=== PATIENT | female | born 1975 | race Caucasian/White ===

== ENCOUNTER 2021-06-05 21:54 | Emergency (ER) | payer MEDICAID, SELFPAY ==
--- NOTE | 2021-06-05 22:14 | XRR_ITS ---
PROCEDURE INFORMATION: Exam: XR Chest Exam date and time: 06/05/2021 10:14 PM Age: 45 years old Clinical indication: Sternal or substernal pain; Additional info: Cp TECHNIQUE: Imaging protocol: XR of the chest. Views: 1 view. COMPARISON: CT abdomen pelvis w con* [id number] 01/23/2018 5:04 PM FINDINGS: Lungs: Unremarkable. No consolidation. Pleural spaces: Unremarkable. No pleural effusion. No pneumothorax. Heart/Mediastinum: Mild cardiomegaly. Bones/joints: Unremarkable. XR/XR chest 1V portable [id number] IMPRESSION: Mild cardiomegaly, negative for infiltrate
--- NOTE | 2021-06-05 22:15 | ECG_ITS ---
[facility] Test Date: 2021-06-05 Pat Name: Nataly Capps Department: Room: Gender: Female Mds Coordinator: : 1975 Requested By: Rick Simpson Order Number: [id number] Reading MD: ANGELO COUGHLIN Measurements Intervals [place] Rate: 72 P: 28 KS: 136 QRS: 39 QRSD: 122 T: 40 QT: 369 QTc: 406 Interpretive Statements SINUS RHYTHM PROBABLE LATERAL MYOCARDIAL INFARCTION [35 ms Q WAVE IN I/aVL/V5/V6], OF INDETERMINATE AGE PROBABLE INFERIOR MYOCARDIAL INFARCTION [35 ms Q WAVE IN II/aVF], PROBABLY OLD No previous ECG available for comparison Electronically Signed On 06-07-2021 20:30:03 CDT by ANGELO COUGHLIN [id number]
[2021-06-05 22:20] VITALS: BP 111/78; PULSE 89; RESP 18; TEMP 36.9; O2SAT 100; BMI 35.4
[2021-06-05 23:38] VITALS: BP 122/61; PULSE 80; RESP 18; O2SAT 100
--- NOTE | 2021-06-05 23:50 | ED_ITS ---
HPI - Chest Pain General: Chief Complaint: Chest Pain Stated Complaint: CP Time Seen by Provider: 06/05/21 23:33 Source: patient Mode of arrival: ambulatory Limitations: no limitations History of Present Illness: HPI narrative: 45-year-old female states that she woke up this morning with a sharp pain in the center of her chest. States it has been going on all day. States it is tender to palpation and her pain is worse with movements of her arm and with deep breaths. She denies any vomiting or diarrhea. Denies any history of heart disease. Denies any fever or cough. Associated symptoms: Deny abdominal pain, dyspnea, fever(s), nausea or vomiting Review of Systems Const: Denies: fever(s), chills, body aches or change in appetite Eyes: Denies: blurry vision or eye discomfort ENMT: Denies: throat pain or dental pain Card: Reports: chest pain Resp: Denies: dyspnea GI: Denies: abdominal pain, nausea, vomiting or diarrhea : Denies: dysuria Musc: Denies: neck pain or back pain Skin/Breast: Denies: rash Neuro: Denies: headache(s) Psych: Denies: depression Isaiah/Lymph: Denies: easy bruising All/Imm: Denies: urticaria PFSH ED PFSH: Family History Other Diabetes Hypertension Social History Smoking and tobacco status: current some day smoker cigarettes [ Other cigarette details: only when stressed ] Alcohol intake: never Female Reproductive History: Date of last menstrual period: 05/27/21 Physical Exam Const: COMMON NORMALS: no acute distress, patient oriented x3 and healthy appearing HENMT: COMMON NORMALS: normocephalic and atraumatic HEAD & SCALP: normocephalic and atraumatic Eye: COMMON NORMALS: Equal, round and reactive pupils present and EOMs intact bilaterally PUPIL: Yes Equal, round and reactive pupils present Neck/C-Spine: COMMON NORMALS: full ROM and supple Chest: COMMONS NORMALS: normal inspection of the chest OTHER: point tender in center of chest Resp: COMMON NORMALS: normal respiratory effort, No retractions, No use of accessory muscles and clear to auscultation bilaterally AUSCULTATION: clear to auscultation bilaterally Cardio: COMMON NORMALS: regular rate, regular rhythm and No murmurs present (Cardio) RATE: regular rate RHYTHM: regular rhythm GI: COMMON NORMALS: Normal to inspection, nondistended, normoactive bowel sounds present, Soft to palpation, non-tender and no masses PALPATION: Yes Soft to palpation Extremity: COMMON NORMALS: normal to inspection and full ROM Neuro: COMMON NORMALS: patient oriented x3, moves all extremities and no focal motor deficits Psych: COMMON NORMALS: mental status grossly normal, Normal thought process present and cooperative THOUGHT PROCESS: Normal thought process present Skin: COMMON NORMALS: no rashes or lesions noted and no wounds GENERAL SKIN EXAM: no rashes or lesions noted Course Vital Signs: Vital signs: Vital Signs Temperature 98.5 F 06/05/21 22:20 Pulse Rate 75 06/06/21 00:30 Respiratory Rate 18 06/06/21 00:30 Blood Pressure 92/68 06/06/21 00:30 Pulse Oximetry 99 06/06/21 00:30 MDM - Chest Pain MDM Narrative: Medical decision making narrative: Patient presents here with chest pain likely chest wall pain. She is point tender. Initial troponin EKG and x-ray are all normal. I believe that she is a 2-hour troponin as her pain is been going on for over 12 hours. She is pain-free here after Toradol. Will prescribe her Naprosyn for home. She is to follow-up PCP and return if worsening. Lab Data: Labs: Lab Results 06/05/21 06/05/21 06/05/21 Range/Units 00:04 00:04 00:04 WBC 11.0 H (4.0-10.0) 10^3/ uL RBC 4.76 (4.1-5.3) 10^6/u L Hgb 13.8 (11.5-15.3) g/dL Hct 43.7 (37.0-47.0) % MCV 91.8 (81-99) fL MCH 29.0 (28.0-34.0) pg MCHC 31.6 (30.0-36.0) g/dL RDW 13.1 (12.1-15.1) % Plt Count 313 (130-400) 10^3/c mm MPV 10.3 (7.4-10.4) fL Neut % (Auto) 59.5 % Lymph % (Auto) 30.5 % [place] % (Auto) 6.0 % Eos % (Auto) 3.2 % Baso % (Auto) 0.4 % Neut # (Auto) 6.56 (1.8-7.7) 10^3/u L Lymph # (Auto) 3.4 (0.8-4.8) 10^3/u L [place] # (Auto) 0.7 (0.2-0.9) 10^3/u L Eos # (Auto) 0.4 (0.0-0.8) 10^3/u L Baso # (Auto) 0.0 (0.0-0.1) 10^3/u L Nucleated RBC % (a uto) 0 % Nucleated RBCs # 0.0 /100WBC Sodium 138 (136-145) mmol/L Potassium 3.8 (3.5-5.1) mmol/L Chloride 102 (98-107) mmol/L Carbon Dioxide 27 (22-29) mmol/L Anion Gap 12.8 (5-19) BUN 10 (6-20) mg/dL Creatinine 0.5 (0.5-0.9) mg/dL GFR Calculation 134.7 H (90-130) mL/min Glucose 86 (65-115) mg/dL Calculated Osmolal ity 284 L (285-295) mOsm/k g Calcium 9.0 (8.5-10.5) mg/dL Total Bilirubin 0.3 (0.15-1.2) mg/dL AST 20 (0-32) U/L ALT 25 (0-33) U/L Alkaline Phosphata se 87 (35-105) IU/L Troponin T Baselin e 6 (0-10) ng/L Total Protein 6.9 (6.6-8.7) g/dL Albumin 4.1 (3.5-5.2) g/dL Globulin 2.8 (1.3-4.6) g/dL Imaging Data^: CXR: Attestation: I personally reviewed and interpreted this imaging study as follows: My impression: no acute abnormality EKG Data^: EKG 1: Attestation: I personally reviewed and interpreted this EKG as follows: EKG interpretation date: 06/05/21 EKG interpretation time: 23:34 Interpretation: nsr hr [address] or t wave abnormalities qrs 122 qtc 393 EKG 2: Attestation: I personally reviewed and interpreted this EKG as follows: EKG interpretation date: 06/06/21 EKG interpretation time: 00:24 Interpretation: nsr hr 71 with no s tor twave abnormalities qrs 117 qtc 390 Discharge Plan Discharge Patient Disposition: Home Clinical Impression: Chest pain Qualifiers: Chest pain type: unspecified Qualified Code(s): R07.9 - Chest pain, unspecified Condition: Stable Prescriptions: New Naprosyn 500 mg tablet 500 mg PO BID PRN (Reason: pain) Qty: 20 RF: 0 No Action medroxyprogesterone [Depo-Provera] 150 mg/mL suspension IM .every 3 months RF: 0 Discharge Orders: Discharge ED (Routine); Ordered 06/06/21 Ordered By: Rick Simpson Discharge Diet: Advance as tolerated Discharge Activity: Resume usual activity Patient Instructions: Chest Pain (ED) Coding Level of Care Code ED Carpentry Specialist for Chg Fwd Exam Comprehensive
[2021-06-06] VITALS: BP 133/88; PULSE 72; RESP 15; O2SAT 91
--- NOTE | 2021-06-06 00:15 | ECG_ITS ---
[facility] Test Date: 2021-06-05 Pat Name: Nataly Capps Department: Room: Gender: Female Scanning Clerk: inocencio : 1975 Requested By: Rick Simpson Order Number: [id number] Reading MD: ANGELO COUGHLIN Measurements Intervals [place] Rate: 88 P: 43 NM: 149 QRS: 21 QRSD: 113 T: 30 QT: 336 QTc: 408 Interpretive Statements SINUS RHYTHM MODERATE INTRAVENTRICULAR CONDUCTION DELAY [110+ ms QRS DURATION] No previous ECG available for comparison Electronically Signed On 06-07-2021 20:33:10 CDT by ANGELO COUGHLIN [id number]
[2021-06-06 00:30] VITALS: BP 92/68; PULSE 75; RESP 18; O2SAT 99
[2021-06-06 00:40] LABS: Basophils % 0.4 %; Eosinophils # 0.4 10^3/uL (0.0-0.8); Eosinophils % 3.2 %; Hematocrit 43.7 % (37.0-47.0); Hemoglobin 13.8 g/dL (11.5-15.3); Lymphocytes # 3.4 10^3/uL (0.8-4.8); Lymphocytes % 30.5 %; Mean Corpuscular HGB Conc 31.6 g/dL (30.0-36.0); Mean Corpuscular Volume 91.8 fL (81-99); Mean Platelet Volume 10.3 fL (7.4-10.4); Monocytes # 0.7 10^3/uL (0.2-0.9); Neutrophils # 6.56 10^3/uL (1.8-7.7); Neutrophils % 59.5 %; Nucleated Red Blood Cells % 0 %; Platelet Count 313 10^3/cmm (130-400); Red Blood Count 4.76 10^6/uL (4.1-5.3); Red Cell Distribution Width 13.1 % (12.1-15.1)
[2021-06-06] MEDS: ketorolac 30 mg/mL INJ 15 MG IVP (00:40)
[2021-06-06 00:49] LABS: Troponin(5th) Baseline 6 ng/L (0-10)
[2021-06-06 00:53] LABS: Alanine Aminotransferase 25 U/L (0-33); Albumin Level 4.1 g/dL (3.5-5.2); Alkaline Phosphatase 87 IU/L (35-105); Anion Gap 12.8 (5-19); Aspartate Amino Transferase 20 U/L (0-32); Blood Urea Nitrogen 10 mg/dL (6-20); Carbon Dioxide 27 mmol/L (22-29); Chloride 102 mmol/L (98-107); Globulin 2.8 g/dL (1.3-4.6); Glomerular Filtration Rate 134.7 mL/min (90-130); Glucose 86 mg/dL (65-115); Osmolality Calculated 284 mOsm/kg (285-295); Potassium 3.8 mmol/L (3.5-5.1); Sodium 138 mmol/L (136-145); Total Bilirubin 0.3 mg/dL (0.15-1.2); Total Protein 6.9 g/dL (6.6-8.7)
[2021-06-06 01:22] VITALS: BP 98/61; PULSE 63; RESP 18; TEMP 36.8; O2SAT 100
--- NOTE | 2021-06-06 04:15 | ECG_ITS ---
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 Measurements Intervals [place] Rate: 71 P: 19 RI: 138 QRS: 21 QRSD: 117 T: 28 QT: 367 QTc: 401 Interpretive Statements SINUS RHYTHM POSSIBLE INFERIOR MYOCARDIAL INFARCTION [40+ ms Q WAVE AND/OR ST/T ABNORMALITY IN II/aVF], PROBABLY OLD Compared to ECG 06/05/2021 23:34:47 No significant changes Electronically Signed On 06-09-2021 0:39:17 CDT by Tiffanie Arceo M.D. [id number]
== END 2021-06-06 01:24 | disposition home or self-care (01) ==
PROVIDERS: Emergency Provider Emergency Medicine
DX: R07.9 Chest pain, unspecified (principal); F17.210 Nicotine dependence, cigarettes, uncomplicated
CPT/HCPCS: 71045; 80053; 84484; 85025; 93005; 96374; 99284; J1885

== ENCOUNTER → 2021-10-13 10:50 | Outpatient (BNVA) | payer MEDICAID, SELFPAY | PROVIDERS: Visit Provider Nurse Practitioner Family | DX: Z20.822 Contact with and (suspected) exposure to COVID-19 (principal) | CPT/HCPCS: 87426; 87635 ==

== ENCOUNTER 2022-09-06 17:09 | Emergency (ER) | payer MEDICAID, SELFPAY ==
--- NOTE | 2022-09-06 17:15 | USR_ITS ---
PROCEDURE INFORMATION: Exam: US Duplex Left Lower Extremity Veins, Limited Exam date and time: 09/06/2022 7:05 PM Age: 46 years old Clinical indication: Pain; Leg, lower; Left; Additional info: Heat, swollen, pain TECHNIQUE: Imaging protocol: Real-time Duplex ultrasound of the Left Lower Extremity with 2-D nogueira scale, color Doppler flow and spectral waveform analysis with image documentation. Limited exam focused on the left lower extremity veins. COMPARISON: CT abdomen pelvis w con* [id number] 01/23/2018 5:04 PM FINDINGS: Left deep veins: Unremarkable. The common femoral, femoral, proximal profunda femoral, popliteal, posterior tibial and peroneal veins are patent without thrombus. Normal compressibility, augmentation response and Doppler waveforms. Left superficial veins: Unremarkable. Saphenofemoral junction is patent without thrombus. Soft tissues: Unremarkable. US/CV venous duplex [facility] [id number] IMPRESSION: No sonographic evidence of deep vein thrombosis.
[2022-09-06 17:16] VITALS: BP 112/71; PULSE 102; RESP 14; TEMP 36.6; O2SAT 95; BMI 40.7
[2022-09-06] MEDS: oxyCODONE-APAP 5-325 mg Tablet 2 TAB PO (20:06)
--- NOTE | 2022-09-07 02:54 | W.ED.EXTPRO ---
HPI - Extremity Problem General: Chief complaint: Extremity Problem,Nontraumatic Stated complaint: Left leg burning Time Seen by Provider: 09/06/22 18:59 Source: patient History of Present Illness: 46-year-old female who complains of left leg burning searing type pain to the medial side of the left leg below her knee down to her foot. She has no back pain. She noticed some mild swelling. She was concerned about a blood clot. She also has a right index finger paronychia that has been more swollen and tender the past couple of days. No fever. No streaking. MD Complaint: extremity pain and extremity swelling Onset (ago): hour(s) Pain Consistency: constant Location: left and lower extremity Quality: burning Radiation: distal Relieving factors: nothing Exacerbating factors: palpation Associated symptoms: Reports rash (Right index finger); Deny chest pain, fever(s), myalgias or short of breath Review of Systems Const: Denies: fever(s) ENMT: Denies: throat pain Card: Denies: chest pain Resp: Denies: dyspnea, productive cough or non-productive cough GI: Denies: nausea or vomiting Musc: Denies: back pain Skin/Breast: Reports: rash (Right index finger) PFSH ED PFSH: Family History Other Diabetes Hypertension Social History Smoking and tobacco status: current some day smoker cigarettes [ Other cigarette details: only when stressed] Alcohol intake: never Female Reproductive History: Date of last menstrual period: 05/27/21 Physical Exam Const: COMMON NORMALS: no acute distress GENERAL APPEARANCE: cooperative; not ill appearing and not frail appearing HENMT: COMMON NORMALS: normocephalic, atraumatic and Normal external nose present HEAD & SCALP: normocephalic and atraumatic FACE & SINUS: normal facial exam and face symmetric NOSE: Normal external nose present Eye: COMMON NORMALS: Equal, round and reactive pupils present and EOMs intact bilaterally PUPIL: Yes Equal, round and reactive pupils present Neck/C-Spine: GENERAL: Yes trachea midline Chest: CHEST: Yes Symmetrical chest wall rise Resp: COMMON NORMALS: normal respiratory effort, No retractions, No use of accessory muscles and clear to auscultation bilaterally AUSCULTATION: clear to auscultation bilaterally Cardio: COMMON NORMALS: regular rate and regular rhythm RATE: regular rate RHYTHM: regular rhythm GI: COMMON NORMALS: Normal to inspection, nondistended, normoactive bowel sounds present Extremity: COMMON NORMALS: no pedal edema NARRATIVE EXTREMITY EXAM: Right index finger paronychia with swelling, and localized abscess. No streaking. No tenosynovitis. Left leg tender to palpation along the medial aspect of the leg. No knee effusion or tenderness. Normal range of motion of the knee. There is no warmth or redness. No edema. Tenderness is along the distribution of the saphenous nerve. There is no pain to the back. There is a negative straight leg raise test. Neuro: SWAPNIL COMA SCALE: document GCS findings Novi coma scale eye opening: Spontaneous Swapnil coma scale verbal response: Orientated Swapnil coma scale motor response: Obey commands Swapnil coma scale total score: 15 SENSORY EXAM: Yes extremities (intact) Psych: COMMON NORMALS: speech normal SPEECH: Yes normal speech Skin: COMMON NORMALS: no rashes or lesions noted GENERAL SKIN EXAM: no rashes or lesions noted Course Vital Signs: Vital signs: Vital Signs Temperature 98 F 09/06/22 17:16 Pulse Rate 102 H 09/06/22 17:16 Respiratory Rate 14 09/06/22 17:16 Blood Pressure 112/71 09/06/22 17:16 Pulse Oximetry 95 09/06/22 17:16 Oxygen Delivery Me thod 09/06/22 17:16 MDM - Extremity (Nontraumatic) Medical Decision Making DVT ultrasound is negative. Paronychia is drained under local anesthetic. She will be placed on antibiotics. Exam findings indicate saphenous neuritis. Unknown cause. No evidence of cellulitis or infection. No evidence of lumbar radiculopathy. The patient notes that she has had shingles in the past, and pain was similar. She has no rash over the back thigh or leg consistent with shingles. She will be prescribed valacyclovir to fill if she does get a shingles rash. Medication for neuropathic pain. Close outpatient follow-up. Lab Data Radiology Impressions Venous Duplex 09/06/22 17:15 IMPRESSION: No sonographic evidence of deep vein thrombosis. Discharge Plan Discharge Patient Disposition: Home Clinical Impression: Neuritis of left saphenous nerve, Paronychia of finger Condition: Stable Prescriptions: New Bactrim DS 800-160 mg tablet 1 tab PO DAILY 7 Days Qty: 14 0RF carbamazepine 100 mg tablet extended release 12 hr 100 mg PO BID Qty: 14 0RF ketorolac 10 mg tablet 10 mg PO TID PRN (Reason: pain) Qty: 10 0RF valacyclovir 1 gram tablet 1,000 mg PO BID 7 Days Qty: 14 0RF Discharge Orders: Discharge ED (Routine); Ordered 09/06/22 Ordered By: Malik Crowder Referrals: Emily May MD [Primary Care Provider] - Patient Instructions: Paronychia (ED), Paresthesia (ED), Opioid Safety, Pain Management Activity Restrictions/Additional Instructions: You may take pain medication when you get home to help you rest. Take the carbamazepine twice daily for the next 7 days for nerve pain. You may use ketorolac as needed for pain on top of this. Use the antibiotic (Bactrim) for your finger. Do not fill the valacyclovir unless you develop a shingles rash on your back or leg. Return for fever despite 2-3 doses of antivirals or antibiotics, worsening pain, worsening redness or swelling to either the finger or the leg. Coding Level of Care Code ED Social Worker Health Services for Inez Aldrich
== END 2022-09-06 20:10 | disposition home or self-care (01) ==
PROVIDERS: Emergency Provider Emergency Medicine; PCP Family Medicine
DX: L03.011 Cellulitis of right finger (principal); G58.8 Other specified mononeuropathies; F17.210 Nicotine dependence, cigarettes, uncomplicated
CPT/HCPCS: 10060; 32551; 93971; 99284

== ENCOUNTER 2022-09-10 09:37 | Emergency (ER) | payer MEDICAID, SELFPAY ==
[2022-09-10 09:45] VITALS: BP 125/82; PULSE 82; RESP 16; TEMP 37; O2SAT 96; BMI 40.7
--- NOTE | 2022-09-10 09:53 | XRR_ITS ---
PROCEDURE INFORMATION: Exam: XR Right Finger(s) Exam date and time: 09/10/2022 10:06 AM Age: 46 years old Clinical indication: Injury or trauma; Blunt trauma (contusions or hematomas); Right; Ring finger; Injury details: History--smashed RT 4 th finger. C/O pain -redness-swelling; Additional info: Fourth TECHNIQUE: Imaging protocol: Radiologic exam of the Right fingers. Views: Minimum 2 views. COMPARISON: No relevant prior studies available. FINDINGS: Bones/joints: No acute fracture or malalignment. Joint spaces are maintained. Soft tissues: No radiopaque foreign bodies are identified. XR/XR finger RT min 2V [id number] IMPRESSION: No acute fracture or malalignment.
[2022-09-10] MEDS: TRAMadol 50 mg Tablet PO (10:30)
[2022-09-10] MEDS: mupirocin oint 22 gm 1 APPLIC TOPICAL (10:32)
[2022-09-10 10:36] VITALS: PULSE 75; O2SAT 99
--- NOTE | 2022-09-10 11:03 | W.ED.EXTPRO ---
HPI - Extremity Problem General: Chief complaint: Extremity Injury, Upper Stated complaint: finger is in pain Time Seen by Provider: 09/10/22 09:45 History of Present Illness: 46-year-old female presents emergency room complaining of right fourth finger swelling and pain. She was seen 4 days ago had a paronychia was incised and drained is recurs increased swelling she denies fever sweats or chills. MD Complaint: extremity pain (Right fourth finger) Onset (ago): day(s) Pain Consistency: constant Location: right and upper extremity Quality: sharp Relieving factors: nothing Exacerbating factors: nothing Associated symptoms: Reports no associated symptoms; Deny chest pain, fever(s) or rash Review of Systems Const: Denies: fever(s), chills, body aches, change in appetite, fatigue or malaise ENMT: Denies: throat pain, ear or mastoid pain, nasal discharge or nasal congestion Card: Denies: chest pain, edema, dyspnea on exertion or orthopnea Resp: Denies: dyspnea, productive cough or non-productive cough GI: Denies: abdominal pain, nausea, vomiting, hematemesis, coffee ground emesis, diarrhea, constipation, bloating, hematochezia or melena : Denies: flank pain, difficulty voiding, dysuria, urinary frequency or urinary urgency Skin/Breast: Denies: rash or pruritus PFSH ED PFSH: Family History Other Diabetes Hypertension Social History Smoking and tobacco status: current some day smoker cigarettes [ Other cigarette details: only when stressed] Alcohol intake: never Female Reproductive History: Date of last menstrual period: 05/27/21 Physical Exam Const: COMMON NORMALS: no acute distress GENERAL APPEARANCE: cooperative and comfortable ORIENTATION/CONSCIOUSNESS: Yes awake, Yes oriented to person, Yes oriented to place and Yes oriented to time HENMT: COMMON NORMALS: normocephalic, atraumatic and hearing grossly normal bilaterally HEAD & SCALP: normocephalic and atraumatic Resp: COMMON NORMALS: normal respiratory effort, No retractions, No use of accessory muscles and clear to auscultation bilaterally AUSCULTATION: clear to auscultation bilaterally Cardio: COMMON NORMALS: regular rate, regular rhythm and No murmurs present (Cardio) RATE: regular rate RHYTHM: regular rhythm Neuro: SENSORIUM/ORIENTATION: Yes oriented to person, Yes oriented to place and Yes oriented to time Procedures Abscess I/D Site: hand (Fourth finger) Side (if applicable): right Technique: other (Bevel of an 18-gauge needle) Irrigation: No Packing used?: none Complications: pain Course Vital Signs: Vital signs: Vital Signs Temperature 98.6 F 09/10/22 09:45 Pulse Rate 75 09/10/22 10:36 Respiratory Rate 16 09/10/22 09:45 Blood Pressure 125/82 09/10/22 09:45 Pulse Oximetry 99 09/10/22 10:36 MDM - Extremity (Nontraumatic) Medical Decision Making Incised and drained paronychia on the right fourth finger at the cuticle large amount of purulent fluid expressed. Culture obtained. Continue previously prescribed Bactrim use topical antibiotic in addition to that. Medical Records I reviewed the patient's medical records. Lab Data I reviewed the patient's lab results. Radiology Impressions Finger X-Ray 09/10/22 09:53 IMPRESSION: No acute fracture or malalignment. Discharge Plan Discharge Patient Disposition: Home Clinical Impression: Paronychia of finger, Status post incision and drainage Condition: Stable Prescriptions: New mupirocin 2 % ointment 1 applic topical BID Qty: 15 0RF No Action carbamazepine 100 mg tablet extended release 12 hr 100 mg PO BID Qty: 14 0RF Rx Instructions: RX WRITTEN 09/06/22 PT DIDNT GET FILLED ketorolac 10 mg tablet 10 mg PO TID PRN (Reason: pain) Qty: 10 0RF Rx Instructions: RX WRITTEN 09/06/22 PT DIDNT GET FILLED Discharge Orders: Discharge ED (Routine); Ordered 09/10/22 Ordered By: Candido Martinez Referrals: Emily May MD [Primary Care Provider] - Discharge Diet: Usual diet Discharge Activity: Resume usual activity Patient Instructions: Opioid Safety, Pain Management Activity Restrictions/Additional Instructions: Soak finger once or twice daily apply topical antibiotic to the incisional area twice daily massage area to prevent recurrence of abscess. Complete antibiotics prescribed at previous visit. Coding Level of Care Code ED Art Framing Manager for Inez Aldrich
== END 2022-09-10 10:37 | disposition home or self-care (01) ==
PROVIDERS: Emergency Provider Family Medicine; PCP Family Medicine
DX: L03.011 Cellulitis of right finger (principal); Z98.890 Other specified postprocedural states; F17.210 Nicotine dependence, cigarettes, uncomplicated
CPT/HCPCS: 10060; 73140; 99283

== ENCOUNTER 2022-10-11 18:09 | Emergency (ER) | payer MEDICAID, SELFPAY ==
[2022-10-11 18:33] VITALS: BP 125/64; PULSE 72; RESP 16; TEMP 36.9; O2SAT 97
--- NOTE | 2022-10-11 19:48 | ED_ITS ---
HPI - Wound/Laceration General: Chief Complaint: Wound/Laceration Stated Complaint: left finger lac Time Seen by Provider: 10/11/22 19:43 History of Present Illness: 47-year-old female comes in today with injury to the left hand dorsal finger. Patient sustained a laceration to the middle finger of the left hand that is approximately 2 cm in length, patient also has some superficial lacerations to the second and fourth finger that are well approximated and not bleeding. Patient cannot recall her last tetanus shot. Review of Systems ENMT: Denies: throat pain Resp: Denies: dyspnea Musc: Reports: extremity pain Skin/Breast: Reports: new lesions PFS ED PFSH: Family History Other Diabetes Hypertension Social History Smoking and tobacco status: current some day smoker cigarettes [ Other cigar ette details: only when stressed] Alcohol intake: never Female Reproductive History: Date of last menstrual period: 05/27/21 Physical Exam Const: COMMON NORMALS: alert HENMT: COMMON NORMALS: atraumatic HEAD & SCALP: atraumatic Neck/C-Spine: COMMON NORMALS: full ROM Resp: COMMON NORMALS: normal respiratory effort Cardio: COMMON NORMALS: regular rate RATE: regular rate Extremity: LEFT UPPER EXTREMITY: Yes hand & digits (2 cm laceration to the middle dorsal finger, superficial lacerations to the) Left hand and digits: Yes inspection, Yes palpation and Yes ROM Neuro: SENSORIUM/ORIENTATION: Yes alert Skin: TRAUMA: laceration (3 linear lacerations to the second, third, and fourth distal finger left [place]) linear Procedures Laceration Laceration 1: Site: hand Side (If applicable): left Size (cm): 2 Depth: simple, single layer Local Anesthetic: lidocaine 1% and with epi Amount of anesthesia used (mL): 1 Pre-repair: wound explored and irrigated extensively Skin layer closed with: nylon Size (cm): 5-0 Number of sutures: 3 Technique: simple, interrupted and horizontal mattress Course Vital Signs: Vital signs: Vital Signs Temperature 98.4 F 10/11/22 18:33 Pulse Rate 72 10/11/22 18:33 Respiratory Rate 16 10/11/22 18:33 Blood Pressure 125/64 10/11/22 18:33 Pulse Oximetry 97 10/11/22 18:33 MDM - Wound/Laceration Medical Decision Making Patient comes in for injury to the left hand distal fingers. Patient has some superficial lacerations to the second and fourth digit of the fingers that are well approximated without any bleeding. Patient also has a more significant laceration to the third digit that is approximately 2 cm and into the subcutaneous fat. Patient cannot recall her last tetanus. Differential diagnosis includes finger laceration, foreign body, need for prophylaxis tetanus. No foreign body was noted. Wound to the middle finger where this repaired with 3 sutures. The other finger wounds were insignificant requiring no treatment. Patient's tetanus was updated. Patient was instructed on postprocedure care and need for follow-up or return to the ER. Patient stated understanding agreed to plan. Discharge Plan Discharge Patient Disposition: Home Clinical Impression: Finger laceration Qualifiers: Encounter type: initial encounter Finger: middle finger Damage to nail status: without damage Foreign body presence: without foreign body Laterality: left Qualified Code(s): S61.213A - Laceration without foreign body of left middle finger without damage to nail, initial encounter Condition: Stable Prescriptions: No Action carbamazepine 100 mg tablet extended release 12 hr 100 mg PO BID Qty: 14 0RF Rx Instructions: RX WRITTEN 09/06/22 PT DIDNT GET FILLED ketorolac 10 mg tablet 10 mg PO TID PRN (Reason: pain) Qty: 10 0RF Rx Instructions: RX WRITTEN 09/06/22 PT DIDNT GET FILLED mupirocin 2 % ointment 1 applic topical BID Qty: 15 0RF Discharge Orders: Discharge ED (Routine); Ordered 10/11/22 Ordered By: Sukhwinder Torres Referrals: Emily May MD [Primary Care Provider] - Discharge Diet: Usual diet Discharge Activity: Increase activity as tolerated Patient Instructions: Finger Laceration (ED) Activity Restrictions/Additional Instructions: Keep wound clean and dry. Is important keep the wound as dry as possible for the next 48 hours. After that she can wash wound gently with mild soap and water. Avoid submersion in water for long periods of time. Sutures need to be removed in 7 days. Follow-up with primary care in 1 week. Return to ED for worsening symptoms such as high fever greater than 100.4, increasing redness or swelling, or new concerns. 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
--- NOTE | 2022-10-11 20:15 | PC.NURSE ---
finger tips cleaned with saline and 4x4 gauze in prep for sutures of 3rd digit.
[2022-10-11] MEDS: tetanus-dipt-pertussis 0.5 mL SDV IM (20:23)
[2022-10-11 21:10] VITALS: PULSE 82; RESP 16; O2SAT 97
== END 2022-10-11 20:40 | disposition home or self-care (01) ==
PROVIDERS: Emergency Provider Nurse Practitioner Family; PCP Family Medicine
DX: S61.213A Laceration without foreign body of left middle finger without damage to nail, initial encounter (principal); Z23 Encounter for immunization; F17.210 Nicotine dependence, cigarettes, uncomplicated; X58.XXXA Exposure to other specified factors, initial encounter
CPT/HCPCS: 12001; 90471; 90715; 99282

== ENCOUNTER 2023-02-01 17:40 | Emergency (ER) | payer MEDICAID, SELFPAY ==
[2023-02-01 18:04] VITALS: BP 134/85; PULSE 78; RESP 15; TEMP 36.7; O2SAT 99
--- NOTE | 2023-02-01 18:09 | XRR_ITS ---
PROCEDURE INFORMATION: Exam: XR Left Hip Exam date and time: 02/01/2023 6:42 PM Age: 47 years old Clinical indication: Injury or trauma; Fall; Blunt trauma (contusions or hematomas); Left; Hip TECHNIQUE: Imaging protocol: Radiologic exam of the left hip. Views: 2 or 3 views hip with pelvis when performed. COMPARISON: CT abdomen pelvis w con* [id number] 01/23/2018 5:04 PM FINDINGS: Bones/joints: Unremarkable. No acute fracture. Soft tissues: Unremarkable. XR/XR hip LT 2-3V wo/w pel* [id number] IMPRESSION: No acute findings.
--- NOTE | 2023-02-01 18:09 | XRR_ITS ---
PROCEDURE INFORMATION: Exam: XR Lumbosacral Spine Exam date and time: 02/01/2023 6:42 PM Age: 47 years old Clinical indication: Injury or trauma; Fall; Blunt trauma (contusions or hematomas) TECHNIQUE: Imaging protocol: Radiologic exam of the lumbosacral spine. Views: 2 or 3 views. COMPARISON: CT abdomen pelvis w con* [id number] 01/23/2018 5:04 PM FINDINGS: Bones/joints: No acute fracture. Normal alignment. Soft tissues: Unremarkable. XR/XR lumbar spine 2-3V* [id number] IMPRESSION: No acute findings.
--- NOTE | 2023-02-01 18:55 | W.ED.FALL ---
HPI - Fall General: Chief Complaint: Fall Stated Complaint: back pain/hip pain Time Seen by Provider: 02/01/23 18:53 History of Present Illness: Patient yesterday accidentally slipped on a wet puddle causing her to land on her buttocks and back. Since then patient had pain to bilateral hips and low back. Patient appears nontoxic. Patient moves all extremities well. Patient reports no chronic medical problems. Review of Systems General: Reports: 10 or more systems reviewed and unremarkable except in HPI and below Const: Denies: fever(s) Musc: Reports: back pain and extremity pain PFSH ED PFSH: Family History Other Diabetes Hypertension Social History Smoking and tobacco status: current some day smoker cigarettes [ Other cigarette details: only when stressed] Alcohol intake: never Physical Exam Const: COMMON NORMALS: alert HENMT: COMMON NORMALS: normocephalic HEAD & SCALP: normocephalic Neck/C-Spine: COMMON NORMALS: full ROM Resp: COMMON NORMALS: normal respiratory effort Cardio: COMMON NORMALS: regular rate RATE: regular rate Back/Pelvis: THORACIC SPINE/UPPER BACK: No thoracic spinal tenderness LUMBAR SPINE/LOWER BACK: No lumbar spinal tenderness and Yes paraspinal muscle tenderness Extremity: COMMON NORMALS: full ROM Neuro: SENSORIUM/ORIENTATION: Yes alert Skin: COMMON NORMALS: turgor normal GENERAL SKIN EXAM: turgor normal Course Vital Signs: Vital signs: Vital Signs Temperature 98.0 F 02/01/23 18:04 Pulse Rate 78 02/01/23 18:04 Respiratory Rate 15 02/01/23 18:04 Blood Pressure 134/85 02/01/23 18:04 Pulse Oximetry 99 02/01/23 18:04 Oxygen Delivery Me thod 02/01/23 18:04 MDM - Fall Medical Decision Making 47-year-old female comes in today for complaints of low back pain and hip pain after slipping and falling yesterday. On exam patient has some muscle tenderness on palpation but no spinal tenderness. Patient moves all extremities well. Patient is weightbearing. Differential diagnosis includes fracture, intervertebral disc disease, sprain, contusion. X-rays of the low back and hip indicated no fractures or abnormalities. Reviewed exam with patient with recommendations for treatment and follow-up. Patient reported understanding. Lab Data Radiology Impressions Hip/Pelvis X-Ray 02/01/23 18:09 IMPRESSION: No acute findings. Lumbar Spine X-Ray 02/01/23 18:09 IMPRESSION: No acute findings. Discharge Plan Discharge Patient Disposition: Home Clinical Impression: Back pain, Bilateral hip pain Fall from slipping Qualifiers: Encounter type: initial encounter Qualified Code(s): W01.0XXA - Fall on same level from slipping, tripping and stumbling without subsequent striking against object, initial encounter Condition: Stable Prescriptions: New diclofenac potassium 50 mg tablet 50 mg PO Q8H PRN (Reason: pain) Qty: 10 0RF cyclobenzaprine 5 mg tablet 5 mg PO BID PRN (Reason: muscle spasm) Qty: 14 0RF No Action prednisone 20 mg tablet 20 mg PO DAILY Qty: 6 0RF Discharge Orders: Discharge ED (Routine); Ordered 02/01/23 Ordered By: Sukhwinder Torres Referrals: Emily May MD [Primary Care Provider] - Discharge Diet: Usual diet Discharge Activity: Increase activity as tolerated Patient Instructions: Pain Management Activity Restrictions/Additional Instructions: Home and rest. Activity as tolerated. Gentle stretching and range of motion exercises. Drink plenty of water with medication. Use acetaminophen to control pain. Use diclofenac 50 mg 1 tablet every 3 hours as needed for pain. Use cyclobenzaprine 5 mg as needed and at bedtime for muscle laxation. Return to ER for new concerns. Follow-up with primary care for further evaluation and treatment. 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
[2023-02-01] MEDS: orphenadrine 30 mg/mL Inj 2 mL 60 MG IM (19:25)
[2023-02-01] MEDS: ketorolac 30 mg/mL INJ IM (19:25)
== END 2023-02-01 19:34 | disposition home or self-care (01) ==
PROVIDERS: Emergency Provider Nurse Practitioner Family; PCP Family Medicine
DX: M54.50 Low back pain, unspecified (principal); M25.552 Pain in left hip; M25.551 Pain in right hip; F17.210 Nicotine dependence, cigarettes, uncomplicated; W01.0XXA Fall on same level from slipping, tripping and stumbling without subsequent striking against object, initial encounter
CPT/HCPCS: 72100; 73502; 96372; 99284; J1885; J2360

== ENCOUNTER → 2023-02-03 15:16 | Outpatient (BNVA) | payer MEDICAID, SELFPAY | PROVIDERS: PCP Family Medicine; Visit Provider Family Medicine | DX: Z68.41 Body mass index [BMI] 40.0-44.9, adult (principal) | CPT/HCPCS: 80053; 80061; 81000; 83036; 84439; 84443; 85025 ==

== ENCOUNTER → 2023-02-10 09:04 | Outpatient (BNVA) | payer MEDICAID, SELFPAY | PROVIDERS: PCP Family Medicine; Referring Provider Family Medicine; Visit Provider Obstetrics & Gynecology | DX: Z01.419 Encounter for gynecological examination (general) (routine) without abnormal findings (principal); E66.9 Obesity, unspecified; N93.9 Abnormal uterine and vaginal bleeding, unspecified; Z20.2 Contact with and (suspected) exposure to infections with a predominantly sexual mode of transmission | CPT/HCPCS: 83036; 86803; 87340; 87491; 87591; 87624; 87661; 87806; 88305 ==

== ENCOUNTER 2023-02-22 16:23 | Outpatient (CLI) | payer MEDICAID, SELFPAY ==
--- NOTE | 2023-02-22 16:41 | XR_ITS ---
WS: [id number] Lumbar spine, 3 views, 02/22/2023 Clinical Data: lumbar pain Comparison: Lumbar spine, 02/01/2023 Findings: No compression fractures or subluxation is seen. No disc space narrowing is seen. The transverse proc esses and SI joints are normal. There is minimal anterior spurring of the T12-L5 vertebral bodies. There are clips in the right upper quadrant from cholecystectomy. There are surgical clips in the right lower abdomen and pelvis. XR/XR lumbar spine 2-3V* [id number] Impression: Mild osteoarthritis of the lumbar vertebral bodies.
== END 2023-02-22 16:24 | disposition home or self-care (01) ==
LOC: RAD 16:27
PROVIDERS: PCP Family Medicine; Visit Provider Family Medicine
DX: G89.29 Other chronic pain (principal); M47.816 Spondylosis without myelopathy or radiculopathy, lumbar region
CPT/HCPCS: 72100

== ENCOUNTER → 2023-03-01 12:56 | Outpatient (BNVA) | payer MEDICAID, SELFPAY | PROVIDERS: PCP Family Medicine; Visit Provider Obstetrics & Gynecology | DX: N93.9 Abnormal uterine and vaginal bleeding, unspecified (principal); N85.2 Hypertrophy of uterus; D25.9 Leiomyoma of uterus, unspecified | CPT/HCPCS: 76830 ==

== ENCOUNTER → 2023-03-03 10:30 | Outpatient (BNVA) | payer MEDICAID, SELFPAY | PROVIDERS: PCP Family Medicine; Visit Provider Obstetrics & Gynecology | DX: Z01.419 Encounter for gynecological examination (general) (routine) without abnormal findings (principal) | CPT/HCPCS: 87624 ==

== ENCOUNTER 2023-03-15 10:37 | Outpatient (CLI) | payer MEDICAID, SELFPAY ==
--- NOTE | 2023-03-15 08:00 | MR_ITS ---
WS: [id number] MRI LUMBAR SPINE NONCONTRAST HISTORY: lumbar injury s/p fall COMPARISON: Radiographs 02/22/2023 TECHNIQUE: Sagittal and axial multisequence imaging is submitted. Mild increase in thoracic kyphosis. Normal lumbar alignment with no compression fractures or marrow edema. Disc spaces and vertebral body heights are well-preserved. Conus terminates normally at L2. L1-L2: Normal. L2-L3: Bilateral facet joint arthritis. No stenosis. L3-L4: Moderate bilateral facet joint arthropathy. No stenosis or disc herniations. There is increase d soft tissue within the LEFT L3-4 subarticular recess. This is best seen on the sagittal T1 sequence . Increased soft tissue is asymmetric to the adjacent disc levels and the RIGHT subarticular recess. L4-L5: Mild disc bulging with moderate bilateral facet joint arthritis. Mild encroachment upon the th ecal sac. Mild central, bilateral subarticular recess. No significant foraminal stenosis or disc prot rusions. L5-S1: Bilateral moderate facet joint arthropathy. No high-grade stenosis or disc protrusions. Very m ild narrowing of the foramina. Paravertebral soft tissues are normal. MR/MR lumbar spine wo con* [id number] IMPRESSION: 1. No high-grade central or foraminal stenosis. 2. Moderate bilateral facet joint arthropathy from L3-4 to L5-S1. 3. Mild central and bilateral subarticular recess encroachment at L4-5. 4. Increased soft tissue in the LEFT subarticular recess of L3-4. Seen best on the sagittal T1 sequence. Cannot exclude a small extruded disc extending into the subarticular recess. Follow-up imaging by MRI with contrast may be helpful to exclude a nerve sheath tumor or extruded disc.
== END 2023-03-15 10:38 | disposition home or self-care (01) ==
PROVIDERS: PCP Family Medicine; Visit Provider Family Medicine
DX: M47.897 Other spondylosis, lumbosacral region (principal)
CPT/HCPCS: 72148

== ENCOUNTER 2023-03-25 11:15 | Outpatient (CLI) | payer MEDICAID, SELFPAY | END 2023-03-25 11:16 | disposition home or self-care (01) | LOC: SPT 11:15 | PROVIDERS: PCP Family Medicine; Visit Provider Physician Assistant | DX: Z46.89 Encounter for fitting and adjustment of other specified devices (principal); M54.50 Low back pain, unspecified | CPT/HCPCS: 97760; L0637 ==

== ENCOUNTER 2023-06-16 10:15 | Outpatient (CLI) | payer MEDICAID, SELFPAY ==
--- NOTE | 2023-06-16 10:25 | XR_ITS ---
WS: [id number] XR lumbar spine f/e only [id number] REASON FOR EXAM: VERTEBROGENIC LOW BACK PAIN FINDINGS: Relatively normal lordosis of the lumbar spine. Kyphosis thoracolumbar junction. No lumbar vertebral body compression deformity focal lesion. Mild narrowing of the 1/12 and L2/disc s paces. Mild osteophytosis of L1-L3 lumbar vertebrae. No significant listhesis. No abnormal vertebral body movement with flexion or extension. IMPRESSION: Mild changes of degenerative spondylosis as above.
== END 2023-06-16 10:16 | disposition home or self-care (01) ==
PROVIDERS: PCP Family Medicine; Visit Provider Physical Therapist
DX: M47.816 Spondylosis without myelopathy or radiculopathy, lumbar region (principal); M40.205 Unspecified kyphosis, thoracolumbar region; M25.78 Osteophyte, vertebrae
CPT/HCPCS: 72120

== ENCOUNTER 2023-12-15 22:17 | Emergency (ER) | payer SELFPAY ==
[2023-12-15 22:21] VITALS: BP 131/85; PULSE 106; RESP 16; TEMP 37.1; O2SAT 96
--- NOTE | 2023-12-15 22:28 | ED_ITS ---
HPI - Headache 2 General: Chief Complaint: Headache Stated Complaint: headache nausea dizzy fever Time Seen by Provider: 12/15/23 22:23 History of Present Illness: 48-year-old female comes in today for co mplaints of bodyaches, headache, and malaise. Patient appears unwell but nontoxic. Patient reports history of migraine headaches. Patient also has a history of some orthopedic knee and back problems. Review of Systems 2 General: Reports: 10 or more systems reviewed and unremarkable except in HPI and below Const: Reports: chills Neuro: Reports: headache(s) PFSH ED 2 PFSH: Surgical History History of appendectomy Hx of cholecystectomy Family History Grandfather Cancer maternal--unknown Other Diabetes Hypertension Lung disease Stroke Denies family history of CAD (coronary artery disease) Clotting disorder Dementia Hyperlipidemia Psychiatric illness Chronic kidney disease (CKD) Anesthesia complication Bleeding disorder Social History Smoking and tobacco/nicotine status: current every day tobacco/nicotine user cigarettes Alcohol intake: never Substance/Drug Use: never Female Reproductive History: Date of last menstrual period: 11/29/23 Physical Exam 2 Const: COMMON NORMALS: alert HENMT: COMMON NORMALS: normocephalic HEAD & SCALP: normocephalic MOUTH: Normal oral and palatal mucosa present THROAT: posterior oropharynx abnormal erythema Neck/C-Spine: COMMON NORMALS: full ROM Resp: COMMON NORMALS: normal respiratory effort and clear to auscultation bilaterally AUSCULTATION: clear to auscultation bilaterally Cardio: COMMON NORMALS: regular rate and regular rhythm RATE: regular rate RHYTHM: regular rhythm GI: COMMON NORMALS: Soft to palpation PALPATION: Yes Soft to palpation Back/Pelvis: COMMON NORMALS: thoracic and lumbar spine normal to inspection Extremity: COMMON NORMALS: normal to inspection Neuro: SENSORIUM/ORIENTATION: Yes alert Skin: COMMON NORMALS: turgor normal GENERAL SKIN EXAM: turgor normal Course 2 Vital Signs: Vital signs: Vital Signs Temperature 98.7 F 12/15/23 22:21 Pulse Rate 106 H 12/15/23 22:21 Respiratory Rate 18 12/15/23 23:24 Blood Pressure 106/60 12/15/23 23:24 Pulse Oximetry 97 12/15/23 23:24 Oxygen Delivery Me thod Room Air 12/15/23 23:24 MDM - Headache Medical Decision Making 48-year-old female comes in today for complaints of headache, congestion, and malaise. Patient appears nontoxic. Patient appears mildly unwell. Lungs have some mild expiratory wheezes. Abdomen soft nontender. No edema is noted in extremities. Skin is warm and dry. Vital signs are normal except for pulse of 106. Differential diagnosis includes migraine headache, rhinosinusitis, viral syndrome, UTI, dehydration. CBC and CMP was unremarkable. Patient tested positive for strep. Will treat patient with antibiotics for strep pharyngitis. Patient was encouraged to drink plenty of fluids and follow-up with primary care return to ED for worsening symptoms. Lab Data 12/15/23 22:44 12/15/23 22:44 Laboratory Results WBC 3.46 10^3/uL (3.29-11.43) 12/15/23 22:44 RBC 4.61 10^6/uL (3.85-5.65) 12/15/23 22:44 Hgb 12.90 g/dL (11.27-16.99) 12/15/23 22:44 Hct 39.8 % (36-47) 12/15/23 22:44 MCV 86.3 fl (85-98) 12/15/23 22:44 MCH 28.0 pg (27-33) 12/15/23 22:44 MCHC 32.4 g/dL (30-55) 12/15/23 22:44 RDW 13.8 % (12.1-15.1) 12/15/23 22:44 Plt Count 231 10^3/cmm (157-399) 12/15/23 22:44 MPV 10.0 fL (7.4-10.4) 12/15/23 22:44 Neut % (Auto) 57.1 % 12/15/23 22:44 Lymph % (Auto) 23.7 % 12/15/23 22:44 Ransom % (Auto) 16.8 % 12/15/23 22:44 Eos % (Auto) 1.2 % 12/15/23 22:44 Baso % (Auto) 0.6 % 12/15/23 22:44 Neut # (Auto) 1.98 10^3/uL (1.8-7.7) 12/15/23 22:44 Lymph # (Auto) 0.8 10^3/uL (0.8-4.8) 12/15/23 22:44 Ransom # (Auto) 0.6 10^3/uL (0.2-0.9) 12/15/23 22:44 Eos # (Auto) 0.0 10^3/uL (0.0-0.8) 12/15/23 22:44 Baso # (Auto) 0.0 10^3/uL (0.0-0.1) 12/15/23 22:44 Nucleated RBC % (auto) 0 % 12/15/23 22:44 Nucleated RBCs # 0.0 /100WBC 12/15/23 22:44 Sodium 137 mmol/L (136-145) 12/15/23 22:44 Potassium 3.8 mmol/L (3.5-5.1) 12/15/23 22:44 Chloride 103 mmol/L (98-107) 12/15/23 22:44 Carbon Dioxide 22 mmol/L (22-29) 12/15/23 22:44 Anion Gap 15.8 (5-19) 12/15/23 22:44 BUN 11 mg/dL (6-20) 12/15/23 22:44 Creatinine 0.6 mg/dL (0.5-0.9) 12/15/23 22:44 GFR Calculation 107.6 mL/min (90-130) 12/15/23 22:44 Glucose 170 mg/dL (65-115) H 12/15/23 22:44 Calculated Osmolality 287 mOsm/kg (285-295) 12/15/23 22:44 Calcium 8.3 mg/dL (8.5-10.5) L 12/15/23 22:44 Total Bilirubin 0.2 mg/dL (0.15-1.2) 12/15/23 22:44 AST 31 U/L (0-32) 12/15/23 22:44 ALT 45 U/L (0-33) H 12/15/23 22:44 Alkaline Phosphatase 99 U/L (35-105) 12/15/23 22:44 Total Protein 7.6 g/dL (6.6-8.7) 12/15/23 22:44 Albumin 3.7 g/dL (3.5-5.2) 12/15/23 22:44 Globulin 3.9 g/dL (1.3-4.6) 12/15/23 22:44 Influenza Type A Ag negative (Negative) 12/15/23 22:46 Influenza Type B Ag negative (Negative) 12/15/23 22:46 SARS-CoV-2 Ag (Rapid) negative (Negative) 12/15/23 22:46 Group A Strep Rapid Positive (Negative) H 12/15/23 22:46 No radiology studies performed this visit Discharge Plan Discharge Patient Disposition: Home Clinical Impression: Acute streptococcal pharyngitis Headache Qualifiers: Headache type: unspecified Headache chronicity pattern: acute headache I ntractability: not intractable Qualified Code(s): R51.9 - Headache, unspecified Condition: Stable Prescriptions: New amoxicillin-pot clavulanate 875-125 mg tablet 1 tab PO BID Qty: 14 0RF No Action cyclobenzaprine 5 mg tablet 5 mg PO BID PRN (Reason: muscle spasm) Qty: 60 0RF ibuprofen 800 mg tablet 800 mg PO Q8H PRN (Reason: pain) Qty: 90 1RF prednisone 20 mg tablet 20 mg PO DAILY Qty: 15 0RF Rx Instructions: 60 mg x 3 days 40 mg x 2 days 20 mg x 2 days (DME) LSO Brace See Rx Instructions .Route .MEDSUPPLY Qty: 1 0RF Rx Instructions: As directed gabapentin 300 mg capsule 300 mg PO TID Qty: 90 0RF hydroxyzine HCl 10 mg tablet 10 mg PO TID PRN (Reason: itching) Qty: 90 0RF Discharge Orders: Discharge ED (Routine); Ordered 12/15/23 Ordered By: Sukhwinder Torres Referrals: Stevenson Morton MD [Primary Care Provider] - Discharge Diet: Advance as tolerated Discharge Activity: Increase activity as tolerated Patient Instructions: Strep Throat (ED) Activity Restrictions/Additional Instructions: Drink plenty of water and fluids. Continue antibiotics as directed. Follow-up with primary care in 1 week for recheck. Return to ED for new concerns. 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
[2023-12-15] MEDS: sodium chloride 0.9% 1,000 ML 999 ML IV ×2 (22:39→23:45)
[2023-12-15] MEDS: ketorolac 30 mg/mL INJ 15 MG IVP (22:40)
[2023-12-15] MEDS: metoclopramide 5 mg/mL SDV 2 mL 10 MG IVP (22:41)
[2023-12-15] MEDS: dexamethasone 10 mg/mL INJ 6 MG IVP (22:41)
[2023-12-15 22:54] LABS: Basophils % 0.6 %; Eosinophils % 1.2 %; Hematocrit 39.8 % (36-47); Lymphocytes # 0.8 10^3/uL (0.8-4.8); Lymphocytes % 23.7 %; Mean Corpuscular HGB Conc 32.4 g/dL (30-55); Mean Corpuscular Volume 86.3 fl (85-98); Monocytes # 0.6 10^3/uL (0.2-0.9); Monocytes % 16.8 %; Neutrophils # 1.98 10^3/uL (1.8-7.7); Neutrophils % 57.1 %; Nucleated Red Blood Cells % 0 %; Platelet Count 231 10^3/cmm (157-399); Red Blood Count 4.61 10^6/uL (3.85-5.65); Red Cell Distribution Width 13.8 % (12.1-15.1); White Blood Count 3.46 10^3/uL (3.29-11.43)
[2023-12-15 23:01] LABS: Rapid Strep A Test Positive (Negative)
[2023-12-15 23:09] LABS: Influenza A by IFA negative (Negative); Influenza B by IFA negative (Negative); SARS Covid-2 Antigen negative (Negative)
[2023-12-15] MEDS: cefTRIAXone 1,000 MG in sodium chloride 0.9% (plus) 50 ML 100 MG IV (23:11)
[2023-12-15 23:19] LABS: Alanine Aminotransferase 45 U/L (0-33); Albumin Level 3.7 g/dL (3.5-5.2); Alkaline Phosphatase 99 U/L (35-105); Anion Gap 15.8 (5-19); Aspartate Amino Transferase 31 U/L (0-32); Blood Urea Nitrogen 11 mg/dL (6-20); Calcium 8.3 mg/dL (8.5-10.5); Carbon Dioxide 22 mmol/L (22-29); Chloride 103 mmol/L (98-107); Globulin 3.9 g/dL (1.3-4.6); Glomerular Filtration Rate 107.6 mL/min (90-130); Glucose 170 mg/dL (65-115); Osmolality Calculated 287 mOsm/kg (285-295); Potassium 3.8 mmol/L (3.5-5.1); Sodium 137 mmol/L (136-145); Total Bilirubin 0.2 mg/dL (0.15-1.2); Total Protein 7.6 g/dL (6.6-8.7)
[2023-12-15 23:24] VITALS: BP 106/60; RESP 18; O2SAT 97
[2023-12-15 23:42] LABS: Urine Appearance SL Hazy (CLEAR); Urine Color Yellow (Yellow); pH Urine 5 (5-7)
[2023-12-15 23:43] LABS: Add Urine Microscopic? YES; Bilirubin Urine 1+ (Negative); Blood Urine 2+ (Negative); Glucose Urine UA Norm (Normal); Ketones Urine 1+ (Negative); Leukocyte Esterase Urine 1+ (Negative); Nitrate Urine Negative (Negative); Protein Urine Trace (Negative); Urobilinogen Urine 1 mg/dL (Negative)
[2023-12-15 23:44] LABS: Add Urine Culture? No; Bacteria Urine 1+ /hpf; Mucus Urine 1+ /hpf; RBC Urine 0-4 /hpf (0-2)
[2023-12-16 00:28] VITALS: BP 102/64; RESP 16; O2SAT 99
== END 2023-12-16 00:31 | disposition home or self-care (01) ==
PROVIDERS: Emergency Provider Nurse Practitioner Family; PCP Family Medicine
DX: R51.9 Headache, unspecified (principal); J02.0 Streptococcal pharyngitis; Z11.52 Encounter for screening for COVID-19; F17.210 Nicotine dependence, cigarettes, uncomplicated
CPT/HCPCS: 80053; 81001; 85025; 87426; 87804; 87880; 96361; 96365; 96375; 99284; J0696; J1100; J1885; J2765; J7030

== ENCOUNTER 2024-04-11 22:50 | Emergency (ER) | payer MEDICAID, SELFPAY ==
[2024-04-11 22:54] VITALS: BP 151/100; PULSE 87; RESP 16; TEMP 36.7; O2SAT 100
--- NOTE | 2024-04-11 23:07 | XRR_ITS ---
PROCEDURE INFORMATION: Exam: XR Chest Exam date and time: 04/11/2024 11:25 PM Age: 48 years old Clinical indication: Shortness of breath; Additional info: SOB TECHNIQUE: Imaging protocol: Radiologic exam of the chest. Views: 1 view. COMPARISON: CR XR chest 1V portable [id number] 06/05/2021 11:40 PM FINDINGS: Lungs: Unremarkable. No consolidation. Pleural spaces: Unremarkable. No pleural effusion. No pneumothorax. Heart/Mediastinum: Unremarkable. No cardiomegaly. Bones/joints: Unremarkable. XR/XR chest 1V portable [id number] IMPRESSION: No acute findings.
--- NOTE | 2024-04-11 23:09 | ED_ITS ---
Documented by User: ALEX Hoffman 04/12/24 00:24 HPI - Skin/Abscess/Foreign Bdy 2 General: Chief complaint: Skin/Abscess/Foreign Body Stated complaint: Tick bite on right leg, Sore throat, SOB Time Seen by Provider: 04/11/24 22:53 Source: patient Mode of arrival: ambulatory Limitations: no limitations History of Present Illness: Patient is a 48-year-old female presenting to the emergency department complaining of tick bite onset couple days. She is also noting an associated rash, throat swelling, and some shortness of breath. She states she is not from this area and this is her first ever tick bite. She states that this has made her anxious. Has not taken anything at home for her symptoms. The tick bite was to her right posterior foot. No pertinent medical history to note. She has not been running fevers, no nausea or vomiting, no syncope, no chest pain, no other symptoms to report. MD complaint: insect bite/sting Onset (ago): day(s) Location: [facility] Associated symptoms: Deny chills, fever(s), nausea or vomiting Treatments prior to arrival: none Review of Systems 2 General: Reports: 10 or more systems reviewed and unremarkable except in HPI and below Const: Denies: fever(s), chills or fatigue Eyes: Denies: change in vision ENMT: Reports: other (Throat swelling); Denies: throat pain, ear or mastoid pain or nasal discharge Card: Denies: chest pain, palpitations, swelling of feet/ankles or lightheadedness Resp: Reports: dyspnea; Denies: productive cough or wheezing GI: Denies: abdominal pain, nausea, vomiting, diarrhea or constipation : Denies: flank pain, difficulty voiding, dysuria or urinary frequency Musc: Denies: neck pain, back pain or joint pain Skin/Breast: Reports: rash and new lesions (Tick bite) Neuro: Denies: headache(s), numbness in extremities or weakness in extremities PFSH ED 2 PFSH: Surgical History History of appendectomy Hx of cholecystectomy Family History Grandfather Cancer maternal--unknown Other Diabetes Hypertension Lung disease Stroke Denies family history of CAD (coronary artery disease) Clotting disorder Dementia Hyperlipidemia Psychiatric illness Chronic kidney disease (CKD) Anesthesia complication Bleeding disorder Social History Smoking and tobacco/nicotine status: current every day tobacco/nicotine user cigarettes Alcohol intake: never Substance/Drug Use: never Female Reproductive History: Date of last menstrual period: 04/11/24 Physical Exam 2 Const: COMMON NORMALS: no acute distress and healthy appearing GENERAL APPEARANCE: cooperative, comfortable and well developed HENMT: COMMON NORMALS: normocephalic, atraumatic, hearing grossly normal bilaterally, external ears normal, EAC's normal, TM's normal bilaterally, Normal external nose present and Normal nasal mucous membranes and turbinates present HEAD & SCALP: normal to inspection, normocephalic and atraumatic FACE & SINUS: normal facial exam and sinuses nontender NOSE: Normal external nose present, Normal nares present, No nasal polyps present and Normal nasal mucous membranes and turbinates present EXTERNAL EAR: Yes external ears normal E XTERNAL AUDITORY CANAL: EAC's normal TYMPANIC MEMBRANE: TM's normal bilaterally MOUTH: Normal oral and palatal mucosa present THROAT: p osterior oropharynx normal and tonsils normal OTHER: No obvious oropharyngeal edema Eye: COMMON NORMALS: EOMs intact bilaterally, conjunctivae normal and normal visual pina by confrontation GENERAL EYE: appearance normal, both eyes and all related structures CONJUNCTIVA: Yes conjunctivae normal Neck/C-Spine: COMMON NORMALS: full ROM, no lymphadenopathy, supple and no meningeal signs GENERAL: Yes normal visual inspection Chest: COMMONS NORMALS: normal inspection of the chest Resp: COMMON NORMALS: normal respiratory effort and clear to auscultation bilaterally EFFORT & INSPECTION: Yes able to speak in complete sentences A USCULTATION: clear to auscultation bilaterally Cardio: COMMON NORMALS: regular rate, regular rhythm, S1 normal heart sound present and S2 normal heart sound present RATE: regular rate RHYTHM: r egular rhythm HEART SOUNDS: S1 normal heart sound present, S2 normal heart sound present, no gallops, no murmurs and no rubs GI: COMMON NORMALS: Normal to inspection, nondistended, normoactive bowel sounds present, Soft to palpation, non-tender and No hepatosplenomegaly present INSPECTION: Yes normal to inspection PALPATION: Yes Soft to palpation and Yes No hepatosplenomegaly present Extremity: COMMON NORMALS: normal to inspection, full ROM and capillary refill normal Neuro: MENINGEAL SIGNS: Yes no meningeal signs Skin: NARRATIVE SKIN EXAM: Presence of tick bite lesion to distal right posterior calf, very mild area of expanding cellulitis and induration Course 2 Vital Signs: Vital signs: Vital Signs Temperature 98.1 F 04/11/24 22:54 Pulse Rate 88 04/11/24 23:41 Respiratory Rate 16 04/11/24 23:41 Blood Pressure 151/100 04/11/24 22:54 Pulse Oximetry 99 04/11/24 23:41 Oxygen Delivery Me thod Room Air 04/11/24 22:54 MDM - Skin/Abscess/Foreign Bdy Medicial Decision Making Patient presented for evaluation of a tick bite, potentially causing some systemic symptoms. Examination did reveal a tick bite lesion, though there was no appreciable rash at this time and her posterior oropharynx did not appear edematous. Basic lab work unremarkable. Her chest x-ray is normal. She does report relief after receiving Decadron and Benadryl through her IV. Also started her on doxycycline for empiric treatment of tickborne illness. She will begin taking the rest of her prescription tomorrow. Reasons to return were discussed and she will follow-up with primary care. Lab Data 04/11/24 23:07 04/11/24 23:07 Radiology Impressions Chest X-Ray 04/11/24 23:07 IMPRESSION: No acute findings. Laboratory Results WBC 10.02 10^3/uL (3.29-11.43) 04/11/24 23:07 RBC 4.64 10^6/uL (3.85-5.65) 04/11/24 23:07 Hgb 12.60 g/dL (11.27-16.99) 04/11/24 23:07 Hct 40.1 % (36-47) 04/11/24 23:07 MCV 86.4 fl (85-98) 04/11/24 23:07 MCH 27.2 pg (27-33) 04/11/24 23:07 MCHC 31.4 g/dL (30-55) 04/11/24 23:07 RDW 14.4 % (12.1-15.1) 04/11/24 23:07 Plt Count 327 10^3/cmm (157-399) 04/11/24 23:07 MPV 10.0 fL (7.4-10.4) 04/11/24 23:07 Neut % (Auto) 58.4 % 04/11/24 23:07 Lymph % (Auto) 34.0 % 04/11/24 23:07 Reynolds % (Auto) 4.8 % 04/11/24 23:07 Eos % (Auto) 2.2 % 04/11/24 23:07 Baso % (Auto) 0.3 % 04/11/24 23:07 Neut # (Auto) 5.85 10^3/uL (1.8-7.7) 04/11/24 23:07 Lymph # (Auto) 3.4 10^3/uL (0.8-4.8) 04/11/24 23:07 Reynolds # (Auto) 0.5 10^3/uL (0.2-0.9) 04/11/24 23:07 Eos # (Auto) 0.2 10^3/uL (0.0-0.8) 04/11/24 23:07 Baso # (Auto) 0.0 10^3/uL (0.0-0.1) 04/11/24 23:07 Nucleated RBC % (auto) 0 % 04/11/24 23:07 Nucleated RBCs # 0.0 /100WBC 04/11/24 23:07 Sodium 138 mmol/L (136-145) 04/11/24 23:07 Potassium 3.7 mmol/L (3.5-5.1) 04/11/24 23:07 Chloride 102 mmol/L (98-107) 04/11/24 23:07 Carbon Dioxide 25 mmol/L (22-29) 04/11/24 23:07 Anion Gap 14.7 (5-19) 04/11/24 23:07 BUN 14 mg/dL (6-20) 04/11/24 23:07 Creatinine 0.5 mg/dL (0.5-0.9) 04/11/24 23:07 GFR Calculation 132.8 mL/min (90-130) H 04/11/24 23:07 Glucose 87 mg/dL (65-115) 04/11/24 23:07 Calculated Osmolality 286 mOsm/kg (285-295) 04/11/24 23:07 Calcium 8.9 mg/dL (8.5-10.5) 04/11/24 23:07 Total Bilirubin 0.2 mg/dL (0.15-1.2) 04/11/24 23:07 AST 17 U/L (0-32) 04/11/24 23:07 ALT 21 U/L (0-33) 04/11/24 23:07 Alkaline Phosphatase 100 U/L (35-105) 04/11/24 23:07 C-Reactive Protein 5.9 mg/L (0.0-4.9) H 04/11/24 23:07 Total Protein 7.8 g/dL (6.6-8.7) 04/11/24 23:07 Albumin 3.8 g/dL (3.5-5.2) 04/11/24 23:07 Globulin 4.0 g/dL (1.3-4.6) 04/11/24 23:07 All radiology interpretation(s) finalized by discharge Discharge Plan Discharge Patient Disposition: Home Clinical Impression: Tick bite Qualifiers: Encounter type: initial encounter Site of tick bite: lower leg Laterality: r ight Qualified Code(s): S80.861A - Insect bite (nonvenomous), right lower leg, initial encounter Condition: Stable Prescriptions: New doxycycline hyclate 100 mg tablet 100 mg PO BID 10 Days Qty: 20 0RF No Action cyclobenzaprine 5 mg tablet 5 mg PO BID PRN (Reason: muscle spasm) Qty: 60 0RF ibuprofen 800 mg tablet 800 mg PO Q8H PRN (Reason: pain) Qty: 90 1RF triamcinolone acetonide 0.1 % cream 1 applic topical BID 7 Days Qty: 30 0RF (DME) LSO Brace See Rx Instructions .Route .MEDSUPPLY Qty: 1 0RF Rx Instructions: As directed sumatriptan succinate 25 mg tablet See Rx Instructions PO .COMPLEX Qty: 10 0RF Rx Instructions: take 1 tab at onset of headache; if no relief may repeat 1 tab after at least 2 hrs; max = 4 tabs/24 hr PO fluticasone propionate [Flonase Allergy Relief] 50 mcg/actuation spray,suspension 2 spray intranasal DAILY Qty: 16 0RF Rx Instructions: administer into each nostril gabapentin 300 mg capsule 300 mg PO TID Qty: 90 0RF hydroxyzine HCl 10 mg tablet 10 mg PO TID PRN (Reason: itching) Qty: 90 0RF Discharge Orders: Discharge ED (Routine); Ordered 04/12/24 Ordered By: Basim Del Toro Referrals: Stevenson Morton MD [Primary Care Provider] - Discharge Diet: Usual diet Discharge Activity: Increase activity as tolerated Patient Instructions: Tick Bite (ED) Activity Restrictions/Additional Instructions: Doxycycline. Benadryl at home for any rash/itching. Plenty of fluids. Follow- up with primary care. Return with any new or worsening. Coding Level of Care Code ED Integrated Specialist for Chg Fwd Documented by User: Candido Martinez DO 04/14/24 21:48 HPI - Skin/Abscess/Foreign Bdy 2 General: Chief complaint: Skin/Abscess/Foreign Body Stated complaint: Tick bite on right leg, Sore throat, SOB Time Seen by Provider: 04/11/24 22:53 PFSH ED 2 PFSH: Surgical History History of appendectomy Hx of cholecystectomy Family History Grandfather Cancer maternal--unknown Other Diabetes Hypertension Lung disease Stroke Denies family history of CAD (coronary artery disease) Clotting disorder Dementia Hyperlipidemia Psychiatric illness Chronic kidney disease (CKD) Anesthesia complication Bleeding disorder Social History Smoking and tobacco/nicotine status: current every day tobacco/nicotine user cigarettes Alcohol intake: never Substance/Drug Use: never Course 2 Vital Signs: Vital signs: Vital Signs Temperature 98.1 F 04/11/24 22:54 Pulse Rate 88 04/11/24 23:41 Respiratory Rate 16 04/11/24 23:41 Blood Pressure 151/100 04/11/24 22:54 Pulse Oximetry 99 04/11/24 23:41 Oxygen Delivery Me thod Room Air 04/11/24 22:54 MDM - Skin/Abscess/Foreign Bdy Medicial Decision Making Patient presented for evaluation of a tick bite, potentially causing some systemic symptoms. Examination did reveal a tick bite lesion, though there was no appreciable rash at this time and her posterior oropharynx did not appear edematous. Basic lab work unremarkable. Her chest x-ray is normal. She does report relief after receiving Decadron and Benadryl through her IV. Also started her on doxycycline for empiric treatment of tickborne illness. She will begin taking the rest of her prescription tomorrow. Reasons to return were discussed and she will follow-up with primary care. Chart reviewed Lab Data 04/11/24 23:07 04/11/24 23:07 Radiology Impressions Chest X-Ray 04/11/24 23:07 IMPRESSION: No acute findings. Laboratory Results WBC 10.02 10^3/uL (3.29-11.43) 04/11/24 23:07 RBC 4.64 10^6/uL (3.85-5.65) 04/11/24 23:07 Hgb 12.60 g/dL (11.27-16.99) 04/11/24 23:07 Hct 40.1 % (36-47) 04/11/24 23:07 MCV 86.4 fl (85-98) 04/11/24 23:07 MCH 27.2 pg (27-33) 04/11/24 23:07 MCHC 31.4 g/dL (30-55) 04/11/24 23:07 RDW 14.4 % (12.1-15.1) 04/11/24 23:07 Plt Count 327 10^3/cmm (157-399) 04/11/24 23:07 MPV 10.0 fL (7.4-10.4) 04/11/24 23:07 Neut % (Auto) 58.4 % 04/11/24 23:07 Lymph % (Auto) 34.0 % 04/11/24 23:07 Reynolds % (Auto) 4.8 % 04/11/24 23:07 Eos % (Auto) 2.2 % 04/11/24 23:07 Baso % (Auto) 0.3 % 04/11/24 23:07 Neut # (Auto) 5.85 10^3/uL (1.8-7.7) 04/11/24 23:07 Lymph # (Auto) 3.4 10^3/uL (0.8-4.8) 04/11/24 23:07 Reynolds # (Auto) 0.5 10^3/uL (0.2-0.9) 04/11/24 23:07 Eos # (Auto) 0.2 10^3/uL (0.0-0.8) 04/11/24 23:07 Baso # (Auto) 0.0 10^3/uL (0.0-0.1) 04/11/24 23:07 Nucleated RBC % (auto) 0 % 04/11/24 23:07 Nucleated RBCs # 0.0 /100WBC 04/11/24 23:07 Sodium 138 mmol/L (136-145) 04/11/24 23:07 Potassium 3.7 mmol/L (3.5-5.1) 04/11/24 23:07 Chloride 102 mmol/L (98-107) 04/11/24 23:07 Carbon Dioxide 25 mmol/L (22-29) 04/11/24 23:07 Anion Gap 14.7 (5-19) 04/11/24 23:07 BUN 14 mg/dL (6-20) 04/11/24 23:07 Creatinine 0.5 mg/dL (0.5-0.9) 04/11/24 23:07 GFR Calculation 132.8 mL/min (90-130) H 04/11/24 23:07 Glucose 87 mg/dL (65-115) 04/11/24 23:07 Calculated Osmolality 286 mOsm/kg (285-295) 04/11/24 23:07 Calcium 8.9 mg/dL (8.5-10.5) 04/11/24 23:07 Total Bilirubin 0.2 mg/dL (0.15-1.2) 04/11/24 23:07 AST 17 U/L (0-32) 04/11/24 23:07 ALT 21 U/L (0-33) 04/11/24 23:07 Alkaline Phosphatase 100 U/L (35-105) 04/11/24 23:07 C-Reactive Protein 5.9 mg/L (0.0-4.9) H 04/11/24 23:07 Total Protein 7.8 g/dL (6.6-8.7) 04/11/24 23:07 Albumin 3.8 g/dL (3.5-5.2) 04/11/24 23:07 Globulin 4.0 g/dL (1.3-4.6) 04/11/24 23:07 Discharge Plan Discharge Patient Disposition: Home Clinical Impression: Tick bite Qualifiers: Encounter type: initial encounter Site of tick bite: lower leg Laterality: r ight Qualified Code(s): S80.861A - Insect bite (nonvenomous), right lower leg, initial encounter Condition: Stable Prescriptions: New doxycycline hyclate 100 mg tablet 100 mg PO BID 10 Days Qty: 20 0RF No Action cyclobenzaprine 5 mg tablet 5 mg PO BID PRN (Reason: muscle spasm) Qty: 60 0RF ibuprofen 800 mg tablet 800 mg PO Q8H PRN (Reason: pain) Qty: 90 1RF triamcinolone acetonide 0.1 % cream 1 applic topical BID 7 Days Qty: 30 0RF (DME) LSO Brace See Rx Instructions .Route .MEDSUPPLY Qty: 1 0RF Rx Instructions: As directed sumatriptan succinate 25 mg tablet See Rx Instructions PO .COMPLEX Qty: 10 0RF Rx Instructions: take 1 tab at onset of headache; if no relief may repeat 1 tab after at least 2 hrs; max = 4 tabs/24 hr PO fluticasone propionate [Flonase Allergy Relief] 50 mcg/actuation spray,suspension 2 spray intranasal DAILY Qty: 16 0RF Rx Instructions: administer into each nostril gabapentin 300 mg capsule 300 mg PO TID Qty: 90 0RF hydroxyzine HCl 10 mg tablet 10 mg PO TID PRN (Reason: itching) Qty: 90 0RF Discharge Orders: Discharge ED (Routine); Ordered 04/12/24 Ordered By: Basim Del Toro Referrals: Stevenson Morton MD [Primary Care Provider] - Discharge Diet: Usual diet Discharge Activity: Increase activity as tolerated Patient Instructions: Tick Bite (ED) Activity Restrictions/Additional Instructions: Doxycycline. Benadryl at home for any rash/itching. Plenty of fluids. Follow- up with primary care. Return with any new or worsening. Coding Level of Care Code ED Integrated Specialist for Inez Aldrich
[2024-04-11] MEDS: doxycycline 100 mg Tablet PO (23:12)
[2024-04-11] MEDS: diphenhydrAMINE 50 mg/mL SDV 1mL IVP (23:13)
[2024-04-11 23:15] LABS: Basophils % 0.3 %; Eosinophils # 0.2 10^3/uL (0.0-0.8); Eosinophils % 2.2 %; Hematocrit 40.1 % (36-47); Lymphocytes # 3.4 10^3/uL (0.8-4.8); Mean Corpuscular HGB Conc 31.4 g/dL (30-55); Mean Corpuscular Hemoglobin 27.2 pg (27-33); Mean Corpuscular Volume 86.4 fl (85-98); Monocytes # 0.5 10^3/uL (0.2-0.9); Monocytes % 4.8 %; Neutrophils # 5.85 10^3/uL (1.8-7.7); Neutrophils % 58.4 %; Nucleated Red Blood Cells % 0 %; Platelet Count 327 10^3/cmm (157-399); Red Blood Count 4.64 10^6/uL (3.85-5.65); Red Cell Distribution Width 14.4 % (12.1-15.1); White Blood Count 10.02 10^3/uL (3.29-11.43)
[2024-04-11] MEDS: dexamethasone 10 mg/mL INJ 8 MG IVP (23:16)
[2024-04-11 23:29] LABS: Alanine Aminotransferase 21 U/L (0-33); Albumin Level 3.8 g/dL (3.5-5.2); Alkaline Phosphatase 100 U/L (35-105); Anion Gap 14.7 (5-19); Aspartate Amino Transferase 17 U/L (0-32); Blood Urea Nitrogen 14 mg/dL (6-20); C Reactive Protein 5.9 mg/L (0.0-4.9); Calcium 8.9 mg/dL (8.5-10.5); Carbon Dioxide 25 mmol/L (22-29); Chloride 102 mmol/L (98-107); Creatinine Clr Calc Pharmacy 166.4246; Glomerular Filtration Rate 132.8 mL/min (90-130); Glucose 87 mg/dL (65-115); Osmolality Calculated 286 mOsm/kg (285-295); Potassium 3.7 mmol/L (3.5-5.1); Sodium 138 mmol/L (136-145); Total Bilirubin 0.2 mg/dL (0.15-1.2); Total Protein 7.8 g/dL (6.6-8.7)
[2024-04-11 23:41] VITALS: PULSE 88; RESP 16; O2SAT 99
== END 2024-04-12 00:34 | disposition home or self-care (01) ==
PROVIDERS: Emergency Provider Physician Assistant; PCP Family Medicine
DX: S80.861A Insect bite (nonvenomous), right lower leg, initial encounter (principal); W57.XXXA Bitten or stung by nonvenomous insect and other nonvenomous arthropods, initial encounter; F17.210 Nicotine dependence, cigarettes, uncomplicated
CPT/HCPCS: 71045; 80053; 85025; 86140; 96374; 96375; 99284; J1100; J1200

== ENCOUNTER 2024-08-03 09:12 | Outpatient (RCR) | payer SELFPAY | END 2024-08-07 23:59 | disposition home or self-care (01) | LOC: SPT 09:12 | PROVIDERS: PCP Family Medicine; Visit Provider Anesthesiology Pain Medicine | DX: M48.061 Spinal stenosis, lumbar region without neurogenic claudication (principal); M47.816 Spondylosis without myelopathy or radiculopathy, lumbar region | CPT/HCPCS: 97110; 97161 ==

== ENCOUNTER 2024-08-08 06:00 | Outpatient (RCR) | payer MEDICAID, SELFPAY | END 2024-09-07 23:59 | disposition home or self-care (01) | LOC: SPT 06:00 | PROVIDERS: PCP Family Medicine; Visit Provider Anesthesiology Pain Medicine | DX: M48.061 Spinal stenosis, lumbar region without neurogenic claudication (principal) | CPT/HCPCS: 97110 ==

== ENCOUNTER 2024-09-08 06:00 | Outpatient (RCR) | payer MEDICAID, SELFPAY | END 2024-10-07 23:59 | disposition home or self-care (01) | LOC: SPT 06:00 | PROVIDERS: PCP Family Medicine; Visit Provider Anesthesiology Pain Medicine | DX: M48.061 Spinal stenosis, lumbar region without neurogenic claudication (principal) | CPT/HCPCS: 97110 ==

== ENCOUNTER 2024-12-04 19:02 | Emergency (ER) | payer MEDICAID, SELFPAY ==
[2024-12-04 19:17] VITALS: BP 121/74; PULSE 97; RESP 16; TEMP 36.6; O2SAT 98; BMI 44.2
--- NOTE | 2024-12-04 19:17 | XRR_ITS ---
PROCEDURE INFORMATION: Exam: XR Left Foot Exam date and time: 12/04/2024 7:47 PM Age: 49 years old Clinical indication: Other: Feels like something is stuck in her lt foot TECHNIQUE: Imaging protocol: Radiologic exam of the left foot. Views: 3 or more views. COMPARISON: No relevant prior studies available. FINDINGS: Bones/joints: No acute osseous abnormality. Plantar calcaneal spurring. Joint spaces are maintained. Soft tissues: Mild soft tissue swelling of the dorsum of the foot. XR/XR foot LT min 3V* [id number] IMPRESSION: As above.
--- NOTE | 2024-12-04 19:33 | W.ED.EXTPRO ---
HPI - Extremity Problem General: Chief complaint: Extremity Injury, Lower Stated complaint: something in L foot, burning Time Seen by Provider: 12/04/24 19:25 Source: patient Mode of arrival: ambulatory Limitations: no limitations History of Present Illness: Patient is a 49-year-old female presents to ED today with a concern for foreign body to her left foot. Patient states she has noticed the area over the past few weeks . She denies any known incident of obtaining the foreign body. She just knows that the lateral aspect of the left foot has hurt and has been burning over the past few weeks-worse when she is on her feet all day at work. She does feel like area is swollen. She has not noticed any redness, streaking, warmth, discharge. MD Complaint: extremity pain Onset (ago): week(s) Pain Consistency: constant Location: left and lower extremity Quality: burning Radiation: none Relieving factors: nothing Exacerbating factors: weight bearing and walking Associated symptoms: Reports no associated symptoms; Deny fever(s) Context: other (thinks possible fb) Related Data Previous Rx's Medication Instructions Recorded LSO Brace #1 ea 03/25/23 oseltamivir 75 mg capsule (Tamiflu) 75 mg PO BID 5 days #10 caps 11/24/24 Allergies Allergy/AdvReac Type Severity Reaction Status Date / Time acetaminophen [From Vicodin] Allergy Severe ADR-Vomitin Verified 12/04/24 19:23 g hydrocodone [From Vicodin] Allergy Severe ADR-Vomitin Verified 12/04/24 19:23 g codeine Allergy Intermediate rash, Verified 12/04/24 19:23 vomiting Review of Systems Const: Denies: fever(s) Musc: Reports: extremity pain and extremity swelling; Denies: joint pain or joint swelling Neuro: Denies: numbness in extremities, weakness in extremities, sensory changes or difficulty walking PFS ED PFSH: Surgical History History of appendectomy Hx of cholecystectomy Family History Grandfather Cancer maternal--unknown Other Diabetes Hypertension Lung disease Stroke Denies family history of CAD (coronary artery disease) Clotting disorder Dementia Hyperlipidemia Psychiatric illness Chronic kidney disease (CKD) Anesthesia complication Bleeding disorder Social History Smoking and tobacco/nicotine status: current some day tobacco/nicotine user cigarettes Alcohol intake: never Substance/Drug Use: never Physical Exam Const: COMMON NORMALS: no acute distress, no limitations, alert and well nourished Extremity: COMMON NORMALS: full ROM, capillary refill normal, no joint enlargement and no calf tenderness GENERAL: Yes normal exam except as noted LEFT LOWER EXTREMITY: Yes foot & digits (mild edema/pain to lateral L foot with overlying small scab/callus) Left foot and digits: Yes inspection (no erythema/warmth/streaking/discharge), Yes ROM (normal) and Yes neurovascular exam (normal) Neuro: COMMON NORMALS: moves all extremities, no focal motor deficits and no sensory deficits noted SENSORIUM/ORIENTATION: Yes alert Course Vital Signs: Vital signs: Vital Signs Temperature 97.8 F 12/04/24 19:17 Pulse Rate 97 12/04/24 19:17 Respiratory Rate 16 12/04/24 19:17 Blood Pressure 121/74 12/04/24 19:17 Pulse Oximetry 98 12/04/24 19:17 Oxygen Delivery Me thod Room Air 12/04/24 19:17 MDM - Extremity (Nontraumatic) Medical Decision Making DDx wart, callus, corn, foreign body. XR not showing any radiopaque foreign bodies. Told patient I do not feel comfortable digging around in her foot for possible unknown fb at this time. Area is not infected. Will refer her to podiatry. XR interpretation done by ED provider, pending radiology final review Discharge Plan Discharge Patient Disposition: Home Clinical Impression: Left foot pain Condition: Stable Prescriptions: No Action oseltamivir [Tamiflu] 75 mg capsule 75 mg PO BID 5 Days Qty: 10 0RF (DME) LSO Brace See Rx Instructions .Route .MEDSUPPLY Qty: 1 0RF Rx Instructions: As directed Discharge Orders: Discharge ED (Routine); Ordered 12/04/24 Ordered By: Swapna Oswald Referrals: Stevenson Morton MD [Primary Care Provider] - Activity Restrictions/Additional Instructions: As we discussed, we will have you follow-up with podiatry for further evaluation of your symptoms. Coding Level of Care Code ED Assessment Manager for Inez Aldrich
[2024-12-04 20:15] VITALS: BP 121/74; PULSE 97; O2SAT 98
--- NOTE | 2024-12-06 07:43 | DCPLANNER ---
Message sent to podiatry-
== END 2024-12-04 20:17 | disposition home or self-care (01) ==
PROVIDERS: Emergency Provider Physician Assistant; PCP Family Medicine
DX: M79.672 Pain in left foot (principal); F17.210 Nicotine dependence, cigarettes, uncomplicated
CPT/HCPCS: 73630; 99283

== ENCOUNTER 2025-05-10 10:41 | Outpatient (CLI) | payer MEDICAID, SELFPAY ==
[2025-05-10 11:28] LABS: Hematocrit 36.6 % (36-47); Hemoglobin 11.20 g/dL (11.27-16.99); Mean Corpuscular HGB Conc 30.6 g/dL (30-55); Mean Corpuscular Hemoglobin 25.1 pg (27-33); Mean Corpuscular Volume 81.9 fl (85-98); Nucleated Red Blood Cells % 0 %; Platelet Count 362 10^3/cmm (157-399); Red Blood Count 4.47 10^6/uL (3.85-5.65); White Blood Count 7.41 10^3/uL (3.29-11.43)
[2025-05-10 11:33] LABS: Glucose Urine UA Negative (Normal); Nitrate Urine Negative (Negative); Specific Gravity, Urine 1.016 (1.005-1.030)
[2025-05-10 11:40] LABS: Estmated Average Glucose 117; Hemoglobin A1C 5.7 % (4.0-6.0)
[2025-05-10 11:55] LABS: Alanine Aminotransferase 16 U/L (0-33); Albumin Level 4.0 g/dL (3.5-5.2); Alkaline Phosphatase 107 U/L (35-105); Anion Gap 16.2 (5-19); Aspartate Amino Transferase 16 U/L (0-32); Blood Urea Nitrogen 11 mg/dL (6-20); Calcium 8.9 mg/dL (8.5-10.5); Carbon Dioxide 25 mmol/L (22-29); Chloride 103 mmol/L (98-107); Cholesterol 139 mg/dL (0-200); Free T4 Free Thyroxine 1.11 ng/dL (0.82-1.77); Globulin 3.8 g/dL (1.3-4.6); Glucose 95 mg/dL (65-115); HDL Cholesterol 57 mg/dL (60-100); Osmolality Calculated 289 mOsm/kg (285-295); Potassium 4.2 mmol/L (3.5-5.1); Sodium 140 mmol/L (136-145); Thyroid Stimulating Hormone 2.34 uIU/mL (0.27-4.20); Total Protein 7.8 g/dL (6.6-8.7); Triglycerides 64 mg/dL (0-150)
[2025-05-10 12:14] LABS: Add Urine Microscopic? YES
[2025-05-10 13:51] LABS: HIV 1 & 2 Antigen Non-Reactive (Non-Reactiv)
== END 2025-05-10 10:42 | disposition home or self-care (01) ==
PROVIDERS: PCP Family Medicine; Visit Provider Family Medicine
DX: Z13.6 Encounter for screening for cardiovascular disorders (principal); Z72.51 High risk heterosexual behavior; Z11.3 Encounter for screening for infections with a predominantly sexual mode of transmission
CPT/HCPCS: 36415; 80053; 80061; 81001; 83036; 84439; 84443; 85025; 87806

== ENCOUNTER 2025-09-30 20:12 | Emergency (ER) | payer MEDICAID, SELFPAY ==
--- OUTSIDE RECORDS SUMMARY | 2025-09-30 20:15 | XMS_ITS | Clinical Summary ---
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 Active Social History Tobacco Use Types Packs/Day Years Used Date Smoking Tobacco: Every Day Cigarettes Smokeless Tobacco: Never Tobacco Cessation:Ready to Q uit: Not Asked; Counseling Given: Not Answered Alcohol Use Standard Drinks/Week Comments Yes 0 (1 standard drink = 0.6 oz pur e alcohol) once in a while Feeling Safe Answer Date Recorded Are you in a relationship wi th someone who hurts you emotionally and/or physically? No 04/13/2024 Comments No Sex and Gender Information Value Date Recorded Sex Assigned at Not on file Legal Sex Female 8:19 PM CDT Gender Identity Not on file Sexual Orientation Not on file Last Filed Vital Signs Vital Sign Reading Time Taken Comments Blood Pressure 93/46 04/13/2024 9:15 PM CDT Pulse 83 04/13/2024 9:15 PM CDT Temperature 36.7 C (98 F) 04/13/2024 8:31 PM CDT Respiratory Rate 16 04/13/2024 9:00 PM CDT Oxygen Saturation 98% 04/13/2024 9:15 PM CDT Inhaled Oxygen Concentration - - Weight 108.4 kg (239 lb) 04/13/2024 8:31 PM CDT Height 160 cm (5' 3 ) 04/13/2024 8:31 PM CDT Body Mass Index 42.34 04/13/2024 8:31 PM CDT Plan of Treatment Health Maintenance Due Date Last Done Comments HEPATITIS B VACCINES (1 of 3 - 19+ 3-dose series) 09/08 HPV/Cotest (21-29) 1998 CERVICAL CANCER SCREENING 2007 HPV/Cotest (30-65) 2007 PAP SMEAR 2007 BREAST CANCER SCREENING 2017 COLORECTAL SCREENING 2022 Colorectal Cancer Screening 2022 FIT-DNA Q 3 years 2022 FIT/FOBT Q 1 year 2022 Flex Sig/CT Colonography Q 5 years 2022 INFLUENZA VACCINE (#1) 2025 DTAP/TDAP/TD VACCINES (2 - Td or Tdap) 10/11/2032 Insurance [facility] [id number]
--- OUTSIDE RECORDS SUMMARY | 2025-09-30 20:16 | XMS_ITS | Patient Health Record ---
Author Organization [facility] Address [address] [place] [address] Care Team Providers Care Jacquard Loom Weaver Name Role Phone Praveen VALERIO, Stevenson Primary Care Provider [facility] Stevenson Weiss Unavailable [phone] Allergies Allergen (clinical drug ingredient) Drug/Non Drug Allergy documented on EMR Reaction Allergy Type Onset Date Status Vicodin Unknown Drug Allergy Active codeine Codeine Unknown Drug Allergy Active Reason For Referral Reason Eval and Treat Diagnosis 1 Other chronic pain ( G89.29) Referring Provider First Name Stevenson Referring Provider Last Name Praveen Referring Provider Speciality Family Med icine Referred Organization [facility] Referred Provider Priscilla Amaya Referred Address [address] [place], [place],[address], Referred Provider Specialty Pain Medicin e General Notes Emilie Lebron 06:38:36 PM CDT > atc pt, lvmBernardino Twyla A 06/13/2025 03:13:38 PM CDT > patient is picking up npp in office, scheduled pt Referral Priority Routine Social History Tobacco Use: Social History Observation Description Date Details (start date - stop date) Current Smoker NA - NA Social History Tobacco Use: Social Info Question Answer Notes Tobacco Control (Standard) Tobacco use: Current smoker Additional Details Category Social Info Options Details Miscellaneous: Sexually active: yes painful i ntercourse Sexual abuse: no Drugs/Alcohol: Do you smoke marijuana? De nies Do you drink alcohol? Yes, Socia lly Problems Problem Type SNOMED Code ICD Code Onset Dates Problem Status W/U Status Risk Notes Problem Chronic pain (95376443) Other chronic pain (G89.29) Active confirmed Problem Chronic pain syndrome (087649777) Chronic pain syndrome (G89.4) Active confirmed Problem Lumbar spondylosis (336315918) Lumbar spondylosis (M47.816) Active confirmed Problem Obesity (803392640) Obesity (E66.9) Active confirmed Problem Abnormal gait (31492081) Abnormality of gait and mobility (R26.9) Active confirmed Vital Signs Weight-kg 105.69 kg 08/29/2025 Weight 233 lbs 08/29/2025 Procedures Procedure Date Ordered Date Performed Result Body Sit e Neurotomy Lumbar/Sacral, 2 o r more levels - 85961, 83138 09/18/2025 09/18/202509-18 Encounters Encounter Location Date Provider Diagnosis [facility] [place] [address] [place] [id number] 08/29/2025 Stevenson Mcelroy Chronic pain syndrome G89.4 ; Abnormality of gait and mobility R26.9 ; Lumbar spondylosis M47.816 and Obesity E66.9 [facility] [address] [address] 09/18/2025 Stevenson Mcelroy Lumbar spondylosis M47.816 Assessments Encounter Date Diagnosis (ICD Code) Assessment Notes Treatment Notes Treatment Clinical Notes Section Notes 09/18/2025 Lumbar spondylosis (ICD-10 - M47.816) 08/29/2025 Chronic pain syndrome (ICD-10 - G89.4) I had a nice visit with the patient today regarding her chronic pain issues. Based on her history, PE, and old lumbar MRI imaging I reviewed, the worst of her symptoms appear consistent with lumbar spondylosis in the setting of obesity. We discussed the impact her weight may have on her overall progress and response to treatment. She expressed understanding and plans to pursue lifestyle modifications to help address this. Regarding her lumbar spine, she is interested in pursuing repeat lumbar RFAs, which she reports were helpful in the past. We reviewed treatment options, and she remains most interested in repeating the RFAs. We will attempt to verify the date of her last procedure. If it has been more than two years, we will proceed with scheduling diagnostic LMBBs; if it has been less than two years, we will move forward with scheduling the RFAs directly. We will follow up thereafter and proceed accordingly. 08/29/2025 Abnormality of gait and mobility (ICD-10 - R26.9) 08/29/2025 Lumbar spondylosis (ICD-10 - M47.816) RECOMMEND REPEAT FACET MEDIAL BRANCH RHIZOTOMY, AT L4-5 L5-S1 LEVELS Repeat facet medial branch nerve rhizotomies are being recommended. The patient has pain of well-documented facet joint origin as evidenced by successful response to previous medial branch rhizotomies at L4-5 L5-S1 levels on 01/03/2024 (LT) and 01/03/2024 (RT/LT) with 60% relief for 6 months or greater as criterion standard. Patient experienced 50% or greater improvement in ability to perform previously painful movement without deterioration of the relief, as mentioned in previous records, compared to a baseline functional disability of 30% prior to rhizotomies. We will now proceed with facet rhizotomy using continuous radiofrequency denervation at a temperature of 90 degrees Celsius for 60 seconds. We also understand that we will either do these bilaterally or two weeks apart if doing different sides. The procedure and risks were discussed with the patient including but not limited to infection, bleeding, neurological complications, side effects from medications, no change in pain, worsening of pain, or even . We also discussed conservative options, surgical options, and medical management with patient as well. The patient indicates understanding and wishes to proceed with the recommended treatment approach. The patient was given written information about the procedure and all questions were answered. 08/29/2025 Obesity (ICD-10 - E66.9) 08/29/2025 Other I, Steph Lechuga, am scribing for Dr. Stevenson Mcelroy. I, Dr. Stevenson Mcelroy, personally performed the services described in this documentation, as scribed by Steph Lechuga, and it is both accurate and complete. Plan Of Treatment Pending Test Test Name Order Date Neurotomy Lumbar/Sacral, 2 or more level s - 53688, 48877 10/02/2025 Next Appt Details Provider Name:Stevenson Mcelroy, 10/02/2025 12:30:00 PM, [address] [place], [address], Insurance Providers Payer Name Payer Address Payer Phone Subscriber Number Group Number Insured Name Patient Relationship to Insured Coverage Start Date Coverage End Date [facility] [employer] [address] [place] [address] [id number] Nataly Capps Self - patient is the insured MD Medicaid [address] [place] [address] [id number] Nataly Capps Self - patient is the insured Medical (General) History Medical History History ICD Code Diabetes migraine headaches Arthritis Swelling of multiple joints Surgical History Surgery Date(Month/Year) appendectomy gall bladder removal
[2025-09-30 20:17] VITALS: BP 124/88; PULSE 94; RESP 18; TEMP 36.6; O2SAT 100; BMI 40.7
--- NOTE | 2025-09-30 20:23 | W.ED.EXTPRO ---
HPI - Extremity Problem General: Chief complaint: Extremity Injury, Upper Stated complaint: RT shoulder pain Time Seen by Provider: 09/30/25 20:14 Source: patient Mode of arrival: ambulatory Limitations: no limitations History of Present Illness: Patient is a nice 50-year-old female who presents to the ED today with complaint of right shoulder pain over the past several weeks. She has not had any injury or trauma. 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 She was seen at a walk-in clinic and prescribed oral steroids and methocarbamol. She states she never filled the muscle relaxer. She states she stopped taking the steroids after one day because she did not like the way they made her feel. She is not complaining of any redness or warmth to the joint. Denies numbness, tingling, loss of sensation. PCP is Dr. Morton and she has not seen him for this complaint. Denies any swelling to the right arm. MD Complaint: joint pain Onset (ago): week(s) Pain Consistency: constant Location: right and upper extremity Quality: burning Radiation: none Relieving factors: immobilization Exacerbating factors: range of motion Associated symptoms: Reports no associated symptoms; Deny chest pain or fever(s) Related Data Previous Rx's ?Medication ?Instructions ?Recorded LSO Brace #1 ea 03/25/23 ibuprofen 800 mg tablet 800 mg PO Q8H PRN pain #30 tabs 09/30/25 methocarbamol 750 mg tablet 750 mg PO Q8H PRN pain #30 tabs 09/30/25 Allergies Allergy/AdvReac Type Severity Reaction Status Date / Time acetaminophen (From Vicodin) Allergy Severe ADR-Vomitin Verified 09/14/25 14:59 g hydrocodone (From Vicodin) Allergy Severe ADR-Vomitin Verified 09/14/25 14:59 g codeine Allergy Intermediate rash, Verified 09/14/25 14:59 vomiting Review of Systems Const: Denies: fever(s), chills, body aches, fatigue or malaise Card: Denies: chest pain Resp: Denies: dyspnea Musc: Reports: joint pain (R shoulder); Denies: neck pain, back pain, extremity pain, extremity swelling, joint swelling, joint redness or joint warmth Neuro: Denies: numbness in extremities, weakness in extremities or sensory changes [facility] ED PFSH: Surgical History History of appendectomy Hx of cholecystectomy Family History Grandfather Cancer maternal--unknown Other Diabetes Hypertension Lung disease Stroke Denies family history of CAD (coronary artery disease) Clotting disorder Dementia Hyperlipidemia Psychiatric illness Chronic kidney disease (CKD) Anesthesia complication Bleeding disorder Social History Smoking and tobacco/nicotine status: current every day tobacco/nicotine user cigarettes Alcohol intake: never Substance/Drug Use: never Physical Exam Const: COMMON NORMALS: no acute distress, patient oriented x3, no limitations, alert and well nourished GENERAL APPEARANCE: cooperative Neck/C-Spine: COMMON NORMALS: full ROM CERVICAL SPINE: No Cervical spine tenderness, No Paracervical muscle tenderness, No Trapezius muscle tenderness and No Lhermitte's sign positive Resp: COMMON NORMALS: normal respiratory effort and clear to auscultation bilaterally AUSCULTATION: clear to auscultation bilaterally Cardio: COMMON NORMALS: regular rate and regular rhythm RATE: regular rate RHYTHM: regular rhythm Extremity: COMMON NORMALS: capillary refill normal GENERAL: Yes normal exam except as noted RIGHT UPPER EXTREMITY: Yes shoulder joint (TTP posterior shoulder/glenohumeral joint) Right shoulder: Yes Right shoulder joint inspection exam (normal gross inspection), Yes Right shoulder joint ROM exam (pain with rotational movements and flexion past 90 deg) and Yes Right shoulder joint neurovascular exam (normal) Neuro: COMMON NORMALS: patient oriented x3, moves all extremities, no focal motor deficits and no sensory deficits noted SENSORIUM/ORIENTATION: Yes alert Course Vital Signs: Vital signs: Vital Signs Temperature 97.8 F 09/30/25 20:17 Pulse Rate 95 09/30/25 20:53 Respiratory Rate 18 09/30/25 20:17 Blood Pressure 120/56 09/30/25 20:53 Pulse Oximetry 99 09/30/25 20:53 Oxygen Delivery Me thod Room Air 09/30/25 20:53 MDM - Extremity (Nontraumatic) Medical Decision Making XR of the right shoulder obtained and personal interpretation is unremarkable. Recommend she follow-up with primary care for further assessment and plan including continued conservative therapies, referral to orthopedics, MRI, physical therapy, etc. Patient states she does not want steroids as she does not like the way they make her feel. Will have her continue anti-inflammatories. She states she never filled the prescription last time for her methocarbamol but seems willing to try this. She does not want anything stronger for pain. XR interpretation done by ED provider, pending radiology final review Discharge Plan Discharge Patient Disposition: Home Clinical Impression: Acute pain of right shoulder Condition: Stable Prescriptions: Continued ibuprofen 800 mg tablet 800 mg PO Q8H PRN (Reason: pain) Qty: 30 0RF methocarbamol 750 mg tablet 750 mg PO Q8H PRN (Reason: pain) Qty: 30 0RF Discontinued prednisone 20 mg tablet 60 mg PO DAILY 5 Days Qty: 15 0RF No Action (DME) LSO Brace See Rx Instructions .Route .MEDSUPPLY Qty: 1 0RF Rx Instructions: As directed Discharge Orders: Discharge ED (Routine); Ordered 09/30/25 Ordered By: Swapna Oswald Referrals: Stevenson Morton MD [Primary Care Provider, Family Practice] Patient Instructions: Shoulder Pain (ED), Patient Portal & Venu Instructions Activity Restrictions/Additional Instructions: As we discussed, x-ray imaging revealed was unremarkable but that this does not rule out other conditions involving the shoulder including impingement syndromes, rotator cuff injuries, labral tears, etc. As we discussed, I would like you to follow-up with your primary care provider as they can determine the next best step including continued conservative therapies, physical therapy, MRI, referral to specialist, etc. Print Language: Turkish Coding Level of Care Code ED Newspaper Editor Managing for Inez Aldrich
--- NOTE | 2025-09-30 20:25 | XRR_ITS ---
PROCEDURE INFORMATION: Exam: XR Right Shoulder Exam date and time: 09/30/2025 8:29 PM Age: 50 years old Clinical indication: Pain; Shoulder; Right; Additional info: Chronic RT shoulder pain; No specific injury TECHNIQUE: Imaging protocol: Radiologic exam of the right shoulder. Views: 2 or more views. COMPARISON: CR XR chest 1V portable [id number] 04/11/2024 11:25 PM FINDINGS: Bones/joints: No evidence of acute fracture or dislocation. Normal glenohumeral joint. Minimal acromioclavicular degenerative change. Soft tissues: No abnormal soft tissue calcification to suggest calcific tendinitis. XR/XR shoulder RT min 2V* [id number] IMPRESSION: Mild acromioclavicular osteoarthritis.
[2025-09-30 20:53] VITALS: BP 120/56; PULSE 95; O2SAT 99
[2025-09-30 21:20] VITALS: BP 108/59; PULSE 93; O2SAT 98
== END 2025-09-30 21:07 | disposition home or self-care (01) ==
PROVIDERS: Emergency Provider Physician Assistant; PCP Family Medicine
DX: M25.511 Pain in right shoulder (principal)
CPT/HCPCS: 73030; 99283